=== PATIENT | male | born 1990 | race African-American/Black ===

== ENCOUNTER 2017-07-05 23:23 | Inpatient (IN) | payer MEDICAID, OTHER ==
[~2017-07-05] VITALS: Ht 162.6 cm; Wt 66.6 kg
[2017-07-05 23:24] VITALS: BP 177/119; PULSE 92; RESP 16; TEMP 98.5; O2SAT 98
--- NOTE | 2017-07-06 00:35 | PD ---
HPI Chief Complaint: Psychiatric Symptoms Time Seen by Provider: 00:23 Travel History International Travel<30 days: No Contact w/Intl Traveler<30days: No Traveled to known affect area: No History of Present Illness HPI 26yo M with PMH of HIV and hep C here with c/o homicidal ideations. Admits to using methamphetamine today. Pt states he was recently restarted on his HIV medications about 2-3 weeks ago and had CD4 count drawn but does not know result. Upon review of systems, has had some cough, left sided chest pain that is sharp for a few days. Denies any fever, n/v, abdominal pain, focal weakness or numbness. +Dysuria. However, on exam, he has abdominal tenderness and say he always has it. PFSH Past Medical History Autoimmune Disease: Yes (HIV) Bipolar Disorder: Yes Depression: Yes Hepatitis: Yes (HEP C) Psychiatric: Yes (SCHIZOAFFECTIVE DISORDER) Past Surgical History Surgical History: No Previous Surgery Social History Alcohol Use: No Tobacco Use: No Substance Use: Yes (METH) Allergies-Medications (Allergen,Severity, Reaction): Coded Allergies: sulfamethoxazole (Verified Adverse Reaction, Severe, Hives, 07/06/17) trimethoprim (Verified Adverse Reaction, Severe, Hives, 07/06/17) Reported Meds & Prescriptions Reported Meds & Active Scripts Active Reported Fluconazole 200 Mg Tab 200 Mg PO DAILY Benztropine (Benztropine Mesylate) 0.5 Mg Tab 0.5 Mg PO BID Haloperidol 5 Mg Tab 5 Mg PO HS Seroquel (Quetiapine Fumarate) 25 Mg Tab 25 Mg PO HS [place] Carbonate 300 Mg Cap 600 Mg PO HS Abilify (Aripiprazole) 20 Mg Tab 20 Mg PO DAILY Triumeq (Ulaohupx-Pfyosxaocjqe-Kkcxwtsbrf) 600-50-300 Mg Tab 1 Tab PO DAILY Hazardous agent; use appropriate precautions for handling & disposal. Review of Systems Except as stated in HPI: all other systems reviewed are Neg Physical Exam Narrative GENERAL: 26yo M not in distress. SKIN: Focused skin assessment warm/dry. HEAD: Atraumatic. Normocephalic. EYES: Pupils equal and round. No scleral icterus. No injection or drainage. ENT: No nasal bleeding or discharge. Mucous membranes pink and moist. NECK: Trachea midline. No JVD. CARDIOVASCULAR: Regular rate and rhythm. No murmur appreciated. RESPIRATORY: No accessory muscle use. Clear to auscultation. Breath sounds equal bilaterally. GASTROINTESTINAL: Abdomen soft, non-tender, +TTP LLQ. No rebound tenderness or guarding. MUSCULOSKELETAL: No obvious deformities. No clubbing. No cyanosis. No edema. NEUROLOGICAL: Awake and alert. No obvious cranial nerve deficits. Motor grossly within normal limits. Normal speech. Data Data Last Documented VS Vital Signs Date Time Temp Pulse Resp B/P (MAP) Pulse Ox O2 Delivery O2 Flow Rate FiO2 07/06/17 08:59 98.7 122 17 130/73 (92) 100 07/06/17 08:02 Room Air Orders Orders Complete Blood Count With Diff (07/06/17 00:07) Basic Metabolic Panel (Bmp) (07/06/17 00:07) Drug Screen, Random Urine (07/06/17 00:07) Alcohol (Ethanol) (07/06/17 00:07) Troponin I (07/06/17 00:31) Electrocardiogram (07/06/17 ) Chest, Single Ap (07/06/17 ) Hepatic Functional Panel (07/06/17 00:31) Urinalysis - C+S If Indicated (07/06/17 00:31) Ct Abd/Pel W Iv Contrast(Rout) (07/06/17 ) Lipase (07/06/17 00:35) Iohexol 350 Inj (Omnipaque 350 Inj) (07/06/17 02:35) Psych Screen (07/06/17 06:19) Diet Regular Basic (07/06/17 Breakfast) Admit Order (Ed Use Only) (07/06/17 12:29) Labs Laboratory Tests Test 07/06/17 00:44 07/06/17 00:50 White Blood Count 6.9 TH/MM3 Red Blood Count 5.47 MIL/MM3 Hemoglobin 14.4 GM/DL Hematocrit 43.0 % Mean Corpuscular Volume 78.5 FL Mean Corpuscular Hemoglobin 26.3 PG Mean Corpuscular Hemoglobin Concent 33.5 % Red Cell Distribution Width 15.6 % Platelet Count 342 TH/MM3 Mean Platelet Volume 6.7 FL Neutrophils (%) (Auto) 58.6 % Lymphocytes (%) (Auto) 27.0 % Monocytes (%) (Auto) 10.8 % Eosinophils (%) (Auto) 3.2 % Basophils (%) (Auto) 0.4 % Neutrophils # (Auto) 4.1 TH/MM3 Lymphocytes # (Auto) 1.9 TH/MM3 Monocytes # (Auto) 0.8 TH/MM3 Eosinophils # (Auto) 0.2 TH/MM3 Basophils # (Auto) 0.0 TH/MM3 CBC Comment DIFF FINAL Differential Comment Blood Urea Nitrogen 15 MG/DL Creatinine 1.22 MG/DL Random Glucose 95 MG/DL Calcium Level 9.4 MG/DL Sodium Level 138 MEQ/L Potassium Level 3.9 MEQ/L Chloride Level 103 MEQ/L Carbon Dioxide Level 27.5 MEQ/L Anion Gap 8 MEQ/L Estimat Glomerular Filtration Rate 88 ML/MIN Total Bilirubin 0.4 MG/DL Direct Bilirubin 0.1 MG/DL Indirect Bilirubin 0.3 MG/DL Aspartate Amino Transf (AST/SGOT) 25 U/L Alanine Aminotransferase (ALT/SGPT) 42 U/L Alkaline Phosphatase 96 U/L Troponin I LESS THAN 0.02 NG/ML Total Protein 9.1 GM/DL Albumin 4.0 GM/DL Lipase 144 U/L Ethyl Alcohol Level LESS THAN 3 MG/DL Urine Opiates Screen NEG Urine Barbiturates Screen NEG Urine Amphetamines Screen POS Urine Benzodiazepines Screen NEG Urine Cocaine Screen NEG Urine Cannabinoids Screen NEG MDM Medical Decision Making Medical Screen Exam Complete: Yes Emergency Medical Condition: Yes Differential Diagnosis Pneumonia vs. pancreatitis vs. IBS vs. UTI vs. depression vs. suicidal ideation Narrative Course 26yo M with HIV and unknown CD4 count here with homicidal ideation. Pt wants to see a psychiatrist. Also has multiple other complaints. EKG, Labs, CXR, CT a/p ordered and will sign out to PA to follow up. If everything is normal, then can medically clear for psych. Diagnosis Primary Impression: Medical clearance for psychiatric admission Anika Rondon DO Jul 06, 2017 00:35
[2017-07-06] MEDS ORDERED: LITH300C2 PO (00:36)
[2017-07-06] MEDS ORDERED: ABAC1TAB3 PO (00:36)
[2017-07-06] MEDS ORDERED: ABIL20TA5 PO (00:36)
--- NOTE | 2017-07-06 01:08 | RADRPT ---
EXAM DATE/TIME: 07/06/2017 00:39 [facility] COMPARISON: No previous studies available for comparison. INDICATIONS : Chest pain MEDICAL HISTORY : None. SURGICAL HISTORY : None. ENCOUNTER: Initial ACUITY: 1 day PAIN SCORE: 6/10 LOCATION: Bilateral chest FINDINGS: A single view of the chest demonstrates the lungs to be symmetrically aerated without evidence of mas s, infiltrate or effusion. The cardiomediastinal contours are unremarkable. Osseous structures are intact. CONCLUSION: 1. No acute cardiopulmonary disease. Oziel Lambert MD on July 06, 2017 at 1:07 Board Certified Radiologist. This report was verified electronically.
[2017-07-06 01:13] LABS: AUTOMATED NEUTROPHIL # 4.1 TH/MM3 (1.8-7.7); BASOPHIL % 0.4 % (0.0-2.0); EOSINOPHIL # 0.2 TH/MM3 (0-0.4); EOSINOPHIL % 3.2 % (0.0-4.0); HEMO FLAGS DIFF FINAL; LYMPHOCYTE # 1.9 TH/MM3 (1.0-4.8); MEAN CELL VOLUME 78.5 FL (80.0-100.0); MEAN CORPUSCULAR HEMOGLOBIN 26.3 PG (27.0-34.0); MEAN CORPUSCULAR HGB CONC 33.5 % (32.0-36.0); MONO % 10.8 % (0.0-8.0); NEUT % 58.6 % (16.0-70.0); PLATELET COUNT 342 TH/MM3 (150-450); RED BLOOD COUNT 5.47 MIL/MM3 (4.50-5.90); RED CELL DISTRIBUTION WIDTH 15.6 % (11.6-17.2); WHITE BLOOD COUNT 6.9 TH/MM3 (4.0-11.0)
[2017-07-06 01:46] LABS: ANION GAP 8 MEQ/L (5-15); BICARBONATE 27.5 MEQ/L (21.0-32.0); BLOOD UREA NITROGEN 15 MG/DL (7-18); CHLORIDE 103 MEQ/L (98-107); GLOMERULAR FILTRATION RATE 88 ML/MIN (>89); POTASSIUM 3.9 MEQ/L (3.5-5.1); SODIUM (NA) 138 MEQ/L (136-145)
[2017-07-06 01:47] LABS: ALCOHOL LESS THAN 3 MG/DL (0-5)
[2017-07-06] MEDS ORDERED: IOHEXOL 350 MG/ML 10 ML VIAL (for RAD DIAG) IVCONTRAST ONE (02:35)
--- NOTE | 2017-07-06 02:49 | RADRPT ---
EXAM DATE/TIME: 07/06/2017 02:24 [facility] COMPARISON: No previous studies available for comparison. INDICATIONS : Left sided abdominal pain. IV CONTRAST: 70 cc Omnipaque 350 (iohexol) IV ORAL CONTRAST: No oral contrast ingested. RADIATION DOSE: 6.64 CTDIvol (mGy) MEDICAL HISTORY : HIV. Hepatitis C. SURGICAL HISTORY : None. ENCOUNTER: Initial ACUITY: 3 days PAIN SCALE: 3/10 LOCATION: Left abdomen TECHNIQUE: Volumetric scanning of the abdomen and pelvis was performed. Using automated exposure control and ad justment of the mA and/or kV according to patient size, radiation dose was kept as low as reasonably achievable to obtain optimal diagnostic quality images. DICOM format image data is available electro nically for review and comparison. FINDINGS: Examination of the lung bases demonstrates no abnormality. No pleural fluid is identified. No pulmona ry nodules are present. The liver and spleen are free of focal defects. The gallbladder and pancreas demonstrate no abnormality. The adrenal glands are normal. The kidneys demonstrate no evidence of lillian id renal mass or hydronephrosis. No free fluid or abdominal masses are identified. No para-aortic quyen nopathy is seen. There are mildly dilated loops of small bowel the left side of the abdomen which may reflect ileus. Examination of the pelvis demonstrates no evidence of free fluid or pelvic mass. No abnormally enlarg ed inguinal or retroperitoneal lymph nodes are present. The bladder is unremarkable. CONCLUSION: 1. Findings of mild small bowel ileus in the left side of the abdomen. Oziel Lambert MD on July 06, 2017 at 2:44 Board Certified Radiologist. This report was verified electronically.
--- NOTE | 2017-07-06 03:02 | PD ---
Physical Exam Date Seen by Provider: Jul 06, 2017 Time Seen by Provider: 03:00 Data Data Last Documented VS Vital Signs Date Time Temp Pulse Resp B/P (MAP) Pulse Ox O2 Delivery O2 Flow Rate FiO2 07/05/17 23:24 98.5 92 16 177/119 (138) 98 Room Air Orders Orders Complete Blood Count With Diff (07/06/17 00:07) Basic Metabolic Panel (Bmp) (07/06/17 00:07) Drug Screen, Random Urine (07/06/17 00:07) Alcohol (Ethanol) (07/06/17 00:07) Troponin I (07/06/17 00:31) Electrocardiogram (07/06/17 ) Chest, Single Ap (07/06/17 ) Hepatic Functional Panel (07/06/17 00:31) Urinalysis - C+S If Indicated (07/06/17 00:31) Ct Abd/Pel W Iv Contrast(Rout) (07/06/17 ) Lipase (07/06/17 00:35) Iohexol 350 Inj (Omnipaque 350 Inj) (07/06/17 02:35) Labs Laboratory Tests Test 07/06/17 00:44 07/06/17 00:50 White Blood Count 6.9 TH/MM3 Red Blood Count 5.47 MIL/MM3 Hemoglobin 14.4 GM/DL Hematocrit 43.0 % Mean Corpuscular Volume 78.5 FL Mean Corpuscular Hemoglobin 26.3 PG Mean Corpuscular Hemoglobin Concent 33.5 % Red Cell Distribution Width 15.6 % Platelet Count 342 TH/MM3 Mean Platelet Volume 6.7 FL Neutrophils (%) (Auto) 58.6 % Lymphocytes (%) (Auto) 27.0 % Monocytes (%) (Auto) 10.8 % Eosinophils (%) (Auto) 3.2 % Basophils (%) (Auto) 0.4 % Neutrophils # (Auto) 4.1 TH/MM3 Lymphocytes # (Auto) 1.9 TH/MM3 Monocytes # (Auto) 0.8 TH/MM3 Eosinophils # (Auto) 0.2 TH/MM3 Basophils # (Auto) 0.0 TH/MM3 CBC Comment DIFF FINAL Differential Comment Blood Urea Nitrogen 15 MG/DL Creatinine 1.22 MG/DL Random Glucose 95 MG/DL Calcium Level 9.4 MG/DL Sodium Level 138 MEQ/L Potassium Level 3.9 MEQ/L Chloride Level 103 MEQ/L Carbon Dioxide Level 27.5 MEQ/L Anion Gap 8 MEQ/L Estimat Glomerular Filtration Rate 88 ML/MIN Ethyl Alcohol Level LESS THAN 3 MG/DL Urine Opiates Screen NEG Urine Barbiturates Screen NEG Urine Amphetamines Screen POS Urine Benzodiazepines Screen NEG Urine Cocaine Screen NEG Urine Cannabinoids Screen NEG MDM Medical Record Reviewed: Yes Supervised Visit with SEKOU: Yes Interpretation(s) CBC & BMP Diagram 07/06/17 00:44 Calcium Level 9.4 Last 24 hours Impressions Chest X-Ray 07/06/17 0000 Signed Impressions: Service Date/Time: Thursday, July 06, 2017 00:39 - CONCLUSION: 1. No acute cardiopulmonary disease. Oziel Lambert MD Abdomen/Pelvis CT 07/06/17 0000 Signed Impressions: Service Date/Time: Thursday, July 06, 2017 02:24 - CONCLUSION: 1. Findings of mild small bowel ileus in the left side of the abdomen. Oziel Lambert MD Differential Diagnosis MDM: High Differential diagnoses: Schizophrenia, schizoaffective disorder, bipolar, anxiety, depression, adjustment reaction, mood disorder NOS, ODD, depressive disorder NOS, dementia, dementia with agitation, psychosis NOS, substance induced mood disorder, DMDD, Asperger syndrome, infection,electrolyte abnormality, malingering. Narrative Course Mental health screening discussed with the patient. Psychiatric screen ordered. I reviewed the patient's laboratory tests. I've also reviewed his CT scans. CT reveals a mild ileus. In lieu of the patient's normal labs and history of intermittent chronic abdominal pain I do not believe that this is a significant finding. The patient is not vomiting. I believe the patient is considered medically cleared. This is medical clearance for psychiatric admission Diagnosis Primary Impression: Medical clearance for psychiatric admission Condition: Casey Marie Jul 06, 2017 03:02
[2017-07-06 06:48] LABS: ALKALINE PHOSPHATASE 96 U/L (45-117); TOTAL BILIRUBIN ADULT 0.4 MG/DL (0.2-1.0)
[2017-07-06 07:11] LABS: ALT (GPT) 42 U/L (12-78); AST (GOT) 25 U/L (15-37); INDIRECT BILIRUBIN 0.3 MG/DL (0.0-0.8)
[2017-07-06 08:02] VITALS: BP 141/84; PULSE 97; RESP 16; O2SAT 100
[2017-07-06 08:59] VITALS: BP 130/73; PULSE 122; RESP 17; TEMP 98.7; O2SAT 100
[2017-07-06] MEDS ORDERED: SERO25TA PO (10:08)
[2017-07-06] MEDS ORDERED: HALO5TAB PO (10:23)
[2017-07-06] MEDS ORDERED: BENZ0.5T PO (10:28)
[2017-07-06] MEDS ORDERED: FLUC200T2 PO (10:30)
[2017-07-06] MEDS ORDERED: LORazepam 2 MG/ML VIAL IM PRN (12:30)
[2017-07-06] MEDS ORDERED: MAGNESIUM HYDROXIDE SUSP 30 ML CUP PO PRN (12:30)
--- NOTE | 2017-07-06 12:41 | HHI.HP ---
Provisional Diagnosis Admission Date [place] I. Adjustment disorder with depressed mood Certification of Person's Competence To Provide Express and Informed Consent I have personally examined Charles Taylor , a person being served at [facility] on, Jul 06, 2017 12:32. Express and informed consent means consent voluntarily given in writing, by a competent person, after sufficient explanation and disclosure of the subject matter involved to enable the person to make a knowing and willful decision without any element of force, fraud, deceit, duress, or other form of constraint or coercion. This person is 18 years of age or older, is not now known to be incompetent to consent to treatment with a guardian advocate, and does not have a health care surrogate or proxy currently making medical treatment decisions. I have found this person to be one of the following: [X] Competent to provide express and informed consent, as defined above, for voluntary admission to this facility and is competent to provide express and informed consent for treatment. He/she has the consistent capacity to make well reasoned, willful, and knowing decisions concerning his or her medical or mental health treatment. The person fully and consistently understands the purpose of the admission for examination/placement and is fully capable of personally exercising all rights [place] [] Incompetent to provide express and informed consent to voluntary admission, and this is incompetent to provide express and informed consent to treatment. The person must be transferred to involuntary status and a petition for a guardian advocate filed with the Circuit Court. [] Refusing to provide express and informed consent to voluntary admission but is competent to provide express and informed consent for treatment. The person must be discharged or transferred to involuntary status. Form shall be completed within 24 hours of a person's arrival at the receiving facility and filed in the clinical record of each person: 1. Admitted on a voluntary basis 2. Permitted to provide express and informed consent to his/her own treatment 3. Allowed to transfer from involuntary to voluntary status 4. Prior to permitting a person to consent to his or her own treatment after having been previously found incompetent to consent to treatment. History of Present Illness Capacity: Has Capacity HPI 26-year-old male, HIV positive, presented to the emergency department voluntarily with thoughts of homicidal ideation and suicidal ideation. Patient has been experiencing these thoughts of self-harm and to harm others intermittently over the last several weeks. He has also been self-medicating his depressive complaints with illicit drugs. Although he has an appointment with [facility] next Sunday to undergo detox and rehabilitation. [place] was [place] Due to these stressors, the patient describes current suicidal thinking with plan. He has attempted to hang himself in the past. He reports he could overdose on his medicine or figure out other ways to harm himself or others. Furthermore, the patient describes multiple symptoms of depression including depressed mood, anhedonia, diminished energy, insomnia, low self-esteem, feelings of hopelessness and helplessness, appetite loss, anxiety and diminished concentration. His toxicology screen is positive for amphetamines but he admitted this without the need for testing. Review of Systems Psychiatric: COMPLAINS OF: Anxiety, Depression Except as stated in HPI: all other systems reviewed are Neg Past Psych History Psychological trauma history Unknown psychological trauma. Patient has been treated at [facility] in the past and was hospitalized there in March. He apparently attempted to hang himself while at [facility]. He has been treated there with Seroquel, Haldol and Abilify. Violence risk - others (6 mos) Moderate Violence risk - self (6 mos) High Substance Abuse History Drugs/Alcohol past 12 months Recently abusing amphetamines substances. Past Family Social History Coded Allergies: sulfamethoxazole (Verified Adverse Reaction, Severe, Hives, 07/06/17) trimethoprim (Verified Adverse Reaction, Severe, Hives, 07/06/17) Reported Medications Fluconazole (Fluconazole) 200 Mg Tab, 200 MG PO DAILY for Infection, TAB 0 Refills 07/06/17 Benztropine (Benztropine) 0.5 Mg Tab, 0.5 MG PO BID, #60 TAB 0 Refills 07/06/17 Haloperidol (Haloperidol) 5 Mg Tab, 5 MG PO HS, TAB 0 Refills 07/06/17 Quetiapine (Seroquel) 25 Mg Tab, 25 MG PO HS, #30 TAB 0 Refills 07/06/17 [place] Carbonate ([place] Carbonate) 300 Mg Cap, 600 MG PO HS, CAP 0 Refills 07/06/17 Aripiprazole (Abilify) 20 Mg Tab, 20 MG PO DAILY, #30 TAB 0 Refills 07/06/17 Htuhpfst-Dhmmqvipniom-Uzkfxiianj (Triumeq) 600-50-300 Mg Tab, 1 TAB PO DAILY for Mgmt Viral Infection, #30 TAB 0 Refills Hazardous agent; use appropriate precautions for handling & disposal. 07/06/17 Family Psych History Positive for mood and anxiety disorders. Social History Currently unemployed. Currently homeless. Has a biological father who [place] but is apparently unhappy with the patient's recent abuse of amphetamines. Patient does have a treatment relationship with [facility] and still wants to receive help for his drug abuse. Patient's Strengths (min. 2) Verbal and has access to healthcare Physical Exam GENERAL: SKIN: Warm and dry. HEAD: Normocephalic. EYES: No scleral icterus. No injection or drainage. NECK: Supple, trachea midline. No JVD or lymphadenopathy. CARDIOVASCULAR: Regular rate and rhythm without murmurs, gallops, or rubs. RESPIRATORY: Breath sounds equal bilaterally. No accessory muscle use. GASTROINTESTINAL: Abdomen soft, non-tender, nondistended. MUSCULOSKELETAL: No cyanosis, or edema. BACK: Nontender without obvious deformity. No CVA tenderness. Vital Signs Vital Signs Date Time Temp Pulse Resp B/P (MAP) Pulse Ox O2 Delivery O2 Flow Rate FiO2 07/06/17 08:59 98.7 122 17 130/73 (92) 100 07/06/17 08:02 Room Air Lab Results Test 07/06/17 00:44 07/06/17 00:50 White Blood Count 6.9 TH/MM3 Red Blood Count 5.47 MIL/MM3 Hemoglobin 14.4 GM/DL Hematocrit 43.0 % Mean Corpuscular Volume 78.5 FL Mean Corpuscular Hemoglobin 26.3 PG Mean Corpuscular Hemoglobin Concent 33.5 % Red Cell Distribution Width 15.6 % Platelet Count 342 TH/MM3 Mean Platelet Volume 6.7 FL Neutrophils (%) (Auto) 58.6 % Lymphocytes (%) (Auto) 27.0 % Monocytes (%) (Auto) 10.8 % Eosinophils (%) (Auto) 3.2 % Basophils (%) (Auto) 0.4 % Neutrophils # (Auto) 4.1 TH/MM3 Lymphocytes # (Auto) 1.9 TH/MM3 Monocytes # (Auto) 0.8 TH/MM3 Eosinophils # (Auto) 0.2 TH/MM3 Basophils # (Auto) 0.0 TH/MM3 CBC Comment DIFF FINAL Differential Comment Blood Urea Nitrogen 15 MG/DL Creatinine 1.22 MG/DL Random Glucose 95 MG/DL Calcium Level 9.4 MG/DL Sodium Level 138 MEQ/L Potassium Level 3.9 MEQ/L Chloride Level 103 MEQ/L Carbon Dioxide Level 27.5 MEQ/L Anion Gap 8 MEQ/L Estimat Glomerular Filtration Rate 88 ML/MIN Total Bilirubin 0.4 MG/DL Direct Bilirubin 0.1 MG/DL Indirect Bilirubin 0.3 MG/DL Aspartate Amino Transf (AST/SGOT) 25 U/L Alanine Aminotransferase (ALT/SGPT) 42 U/L Alkaline Phosphatase 96 U/L Troponin I LESS THAN 0.02 NG/ML Total Protein 9.1 GM/DL Albumin 4.0 GM/DL Lipase 144 U/L Ethyl Alcohol Level LESS THAN 3 MG/DL Urine Opiates Screen NEG Urine Barbiturates Screen NEG Urine Amphetamines Screen POS Urine Benzodiazepines Screen NEG Urine Cocaine Screen NEG Urine Cannabinoids Screen NEG Mental Status Examination Appearance: Appropriate Consciousness: Alert Orientation: x4 Motor Activity: Normal gait Speech: Unremarkable Language: Adequate Fund of Knowledge: Adequate Attention and Concentration: Adequate Memory: Unremarkable Mood: Sad Affect: Sad Thought Process & Associations: Intact Thought Content: Appropriate Hallucination Type: None Delusion Type: None Suicidal Ideation: Yes Suicidal Plan: Yes Suicidal Intention: Yes Homicidal Ideation: Yes Homicidal Plan: No Homicidal Intention: No Insight: Adequate Judgment: Adequate Assessment & Plan Problem List: (1) Adjustment disorder with depressed mood ICD Codes: F43.21 - Adjustment disorder with depressed mood Assessment & Plan Estimated LOS: days. 26-year-old male who presents voluntarily with history of depression and suicidal ideation as well as homicidal ideation. While this physician does not feel the patient is truly homicidal, the patient does have multiple symptoms of depression, including suicidal ideation with plan, chronic medical issue of HIV, and history of previous suicide attempts. He is therefore felt to be at high risk for self-harm and is being admitted voluntarily for evaluation and treatment. This physician has ordered a CBC and comprehensive metabolic panel to determine if any infectious process or metabolic process is causing or contributing to his depression. This physician has ordered a hep us consult to evaluate the patient's physical health and the status of his HIV. There is significant concern that the patient has been noncompliant with both psychotropic and nonpsychotropic medicines. This physician also ordered thyroid stimulating hormone levels, vitamin B-12 levels and vitamin D levels, to determine if deficiencies in these areas are causing or contributing to the patient's depression. This physician has also ordered an EKG to determine the patient's cardiac conduction status. This physician spoke with the patient's nurse, Donna, regarding his recent behavior in the emergency department. Patient has apparently discussed with her, and alter ego he has named "Karlos". This physician is also asking for case management to get involved for further information gathering and disposition planning. Guido Martínez MD Jul 06, 2017 12:41
[2017-07-06 14:21] VITALS: BP 137/75; PULSE 103; RESP 17; TEMP 98.7; O2SAT 98
[2017-07-06 16:45] VITALS: BP 149/95; PULSE 115; RESP 18; TEMP 98.5; O2SAT 95
[2017-07-06 17:06] VITALS: BP 119/80; PULSE 117; RESP 18; TEMP 97.8; O2SAT 100
[2017-07-06] MEDS: LORazepam 1 MG TAB PO PRN (17:55)
--- NOTE | 2017-07-06 18:07 | EKG ---
Date Performed: 07/06/2017 Time Performed: 02:16:12 PTAGE: 26 years EKG: Sinus rhythm POSSIBLE LEFT ATRIAL ENLARGEMENT BORDERLINE ECG NO PREVIOUS TRACING DOCTOR: Elva Judd Interpretating Date/Time 07/06/2017 18:05:05
--- NOTE | 2017-07-06 18:14 | PD.CONS ---
HPI Service [facility] Hospitalists Consult Requested By Guido Martínez M.D. Reason for Consult Medical management of HIV positive status. Primary Care Physician Isaias Pollock M.D. Diagnoses: (1) HIV positive (2) Methamphetamine abuse (3) Tachycardia (4) Wheezing (5) Abdominal left lower quadrant tenderness History of Present Illness Mr. Taylor is 26 yo, with history of HIV positive status, depression/bipolar/schizoaffective disorder, and hepatitis C positive. Mr. Taylor came to [facility] due to feeling of depression and suicidal ideation. He was medically cleared by the ED for psychiatric admission. Dr. Martínez consulted the hospitalist team to medically manage Mr. Taylor's HIV status. Mr. Taylor reported he was diagnosed with HIV on September 02, 2015 "and that was the worst say of my life." He said he was prescribed Triumeq which he stated he took for a period of time "but I was off of it for about a year." He stated he resumed his medication 2-3 weeks ago when "things were looking up for me." He stated his depression has worsened over the past two weeks. He noted he wanted help and "didn't want to commit suicide." He stated he has attempted suicide in the past by overdosing on methamphetamines. He reported he has been meth for "about 6 months to a year" with use reported as 4-5 days per week. he stated he will be seeking rehabilitation services upon discharge as "it's not fun any more." Mr. Taylor reported he was seen by his HIV physician 2-3 weeks ago and had blood work obtained. He said he is to see that physician July 23 for follow-up. He stated for the past "couple of weeks" having left sided chest pain "on top of my chest" without pain radiating to his back, neck, or left shoulder/arm. Mr. Taylor reported over the past month he has experienced wheezing and denied allergies, asthma, or other breathing disorder. Over the course of the past two months he reported experiencing "my heart beat has been rapid" and sweating. For the past year he reported intermittent left lower quadrant tenderness. He also reported infrequent "pain when I pee" as well as decreased bowel movements and flatulence. He noted his appetite is greatly decreased and may not "have anything coming out because I haven;t been eating all that much." He noted he did not think his appetite change was related to his depression as "I usually eat when I am depressed." Review of Systems Constitutional: COMPLAINS OF: Diaphoretic episodes, Change in appetite Endocrine: DENIES: Polydipsia, Polyphagia Ears, nose, mouth, throat: DENIES: Throat pain, Sinus Pain Respiratory: COMPLAINS OF: Cough, Wheezing Cardiovascular: DENIES: Chest pain, Palpitations, Dyspnea on Exertion Gastrointestinal: COMPLAINS OF: Abdominal pain, DENIES: Black stools, Constipation, Diarrhea, Nausea, Vomiting Musculoskeletal: COMPLAINS OF: Muscle aches (of the chest) Hematologic/lymphatic: DENIES: Lymphadenopathy Neurologic: COMPLAINS OF: Headache Psychiatric: COMPLAINS OF: Depression, Suicidal Ideation Except as stated in HPI: all other systems reviewed are Neg Past Family Social History Allergies: Coded Allergies: sulfamethoxazole (Verified Adverse Reaction, Severe, Hives, 07/06/17) trimethoprim (Verified Adverse Reaction, Severe, Hives, 07/06/17) Past Medical History HIV positive status, depression/bipolar/schizoaffective disorder hepatitis C positive. Past Surgical History Surgical history was denied. Reported Medications Reported Meds & Active Scripts Active Reported Fluconazole 200 Mg Tab 200 Mg PO DAILY Benztropine (Benztropine Mesylate) 0.5 Mg Tab 0.5 Mg PO BID Haloperidol 5 Mg Tab 5 Mg PO HS Seroquel (Quetiapine Fumarate) 25 Mg Tab 25 Mg PO HS [place] Carbonate 300 Mg Cap 600 Mg PO HS Abilify (Aripiprazole) 20 Mg Tab 20 Mg PO DAILY Triumeq (Bncgmtqk-Hhrzocbssdvk-Yixibbgzlk) 600-50-300 Mg Tab 1 Tab PO DAILY Hazardous agent; use appropriate precautions for handling & disposal. Active Ordered Medications Current Medications Medications (Trade) Dose Ordered Sig/Viviane Route Start Time Stop Time Status Last Admin (Ativan) 1 mg Q6H PRN PO 07/06/17 12:30 07/06/17 17:55 (Ativan Inj) 1 mg Q6H PRN IM 07/06/17 12:30 (Tylenol) 650 mg Q4H PRN PO 07/06/17 12:30 (Milk Of Magnesia Liq) 30 ml DAILY PRN PO 07/06/17 12:30 (Mag-Al Plus Susp Liq) 30 ml Q6H PRN PO 07/06/17 12:30 (Desyrel) 50 mg HS PRN PO 07/06/17 12:30 (Atarax) 50 mg Q6H PRN PO 07/06/17 12:30 (Pneumovax-23 Inj) 25 mcg ONCE ONCE IM 07/07/17 10:00 07/07/17 10:01 Family History Pt reported significant family history (both sides" for diabetes, hypertension, and cancer. He specifically identified the following family members and their conditions Uncle-stomach cancer Grandmother-Breast cancer Grandmother-Bone cancer Mother-COPD Father-Kidney disease, diabetes, hypertension. Social History Alcohol use-reported as "maybe one time per year." Tobacco use was denied. Illicit/recreational drug use: pt reported methamphetamine use of 6 months to a year, 4-5 days per week. Pt's drug screen was positive for amphetamines upon admission. Pt stated he last used methamphetamines "about 4 days ago". Review of ER record indicated pt told ED team he had used on 07/05/17 Physical Exam Vital Signs Vital Signs Date Time Temp Pulse Resp B/P (MAP) Pulse Ox O2 Delivery O2 Flow Rate FiO2 07/06/17 17:06 97.8 117 18 119/80 (93) 100 07/06/17 16:45 98.5 115 18 149/95 (113) 95 07/06/17 14:23 07/06/17 14:21 98.7 103 17 137/75 (95) 98 07/06/17 08:59 98.7 122 17 130/73 (92) 100 07/06/17 08:02 97 16 141/84 (103) 100 Room Air 07/05/17 23:24 98.5 92 16 177/119 (138) 98 Room Air Physical Exam GENERAL: This is a thin appearing, well-developed patient, in no apparent distress. SKIN: No rashes, ecchymoses or lesions. Cool and dry. HEAD: Atraumatic. Normocephalic. No temporal or scalp tenderness. EYES: Pupils equal round and reactive. Extraocular motions intact. No scleral icterus. No injection or drainage. ENT: Nose without bleeding or purulent drainage. Airway patent. NECK: Trachea midline. No lymphadenopathy. Supple and nontender. CARDIOVASCULAR: Tachycardic rate (120) and regular rhythm without murmurs, gallops, or rubs. RESPIRATORY: Clear to auscultation. Breath sounds equally diminished, bilaterally. No wheezes, rales, or rhonchi. GASTROINTESTINAL: Abdomen soft, tender left lower quadrant, nondistended. No hepato-splenomegaly, or palpable masses. No guarding. MUSCULOSKELETAL: Extremities without clubbing, cyanosis, or edema. NEUROLOGICAL: Awake and alert. Cranial nerves II through XII intact. Motor and sensory grossly within normal limits. Five out of 5 muscle strength in all muscle groups. Speech was clear and fluent. Laboratory Laboratory Tests Test 07/06/17 00:44 07/06/17 00:50 White Blood Count 6.9 Red Blood Count 5.47 Hemoglobin 14.4 Hematocrit 43.0 Mean Corpuscular Volume 78.5 Mean Corpuscular Hemoglobin 26.3 Mean Corpuscular Hemoglobin Concent 33.5 Red Cell Distribution Width 15.6 Platelet Count 342 Mean Platelet Volume 6.7 Neutrophils (%) (Auto) 58.6 Lymphocytes (%) (Auto) 27.0 Monocytes (%) (Auto) 10.8 Eosinophils (%) (Auto) 3.2 Basophils (%) (Auto) 0.4 Neutrophils # (Auto) 4.1 Lymphocytes # (Auto) 1.9 Monocytes # (Auto) 0.8 Eosinophils # (Auto) 0.2 Basophils # (Auto) 0.0 CBC Comment DIFF FINAL Differential Comment Blood Urea Nitrogen 15 Creatinine 1.22 Random Glucose 95 Calcium Level 9.4 Sodium Level 138 Potassium Level 3.9 Chloride Level 103 Carbon Dioxide Level 27.5 Anion Gap 8 Estimat Glomerular Filtration Rate 88 Total Bilirubin 0.4 Direct Bilirubin 0.1 Indirect Bilirubin 0.3 Aspartate Amino Transf (AST/SGOT) 25 Alanine Aminotransferase (ALT/SGPT) 42 Alkaline Phosphatase 96 Troponin I LESS THAN 0.02 Total Protein 9.1 Albumin 4.0 Lipase 144 Ethyl Alcohol Level LESS THAN 3 Urine Opiates Screen NEG Urine Barbiturates Screen NEG Urine Amphetamines Screen POS Urine Benzodiazepines Screen NEG Urine Cocaine Screen NEG Urine Cannabinoids Screen NEG Result Diagram: 07/06/17 0044 07/06/17 0044 Assessment and Plan Assessment and Plan Mr. Taylor is 26 yo, with history of HIV positive status, depression/bipolar/schizoaffective disorder, and hepatitis C positive. Mr. Taylor came to [facility] due to feeling of depression and suicidal ideation. He was medically cleared by the ED for psychiatric admission. Dr. Martínez consulted the hospitalist team to medically manage Mr. Taylor's HIV status. HIV positive -Convert home regimen of Triumeq to individual equivalent medications given at same time. -Abacavir 600 mg po daily, Dolutegravir 50 mg po daily, Lamivudine 300 mg po daily Tachycardia chest pain -Drug test positive for amphetamines. -EKG from ED indicated normal rate with possible left atrial enlargement. -Monitor -Check Thyroid panel -Labs do not indicate dehydration Dyspnea -Albuterol inhaler Lower left quadrant abdominal pain, chronic -Ileus ruled out by ED team -Consider GI consult Adjustment disorder with depressed mood -Treatment per psychiatry. Discussed Condition With Pt and RN Problem Qualifiers (1) Abdominal left lower quadrant tenderness: Qualified Codes: R10.824 - Left lower quadrant rebound abdominal tenderness Froy Mae Jr. Jul 06, 2017 18:14
[2017-07-06 18:20] VITALS: BP 155/88; PULSE 84; RESP 16; TEMP 98.7; O2SAT 98
[2017-07-06] MEDS ORDERED: ALBUTEROL SULFATE 90 MCG/ACT HFA 8 GM INHALER INH PRN (19:00)
[2017-07-06] MEDS: traZODone HCL 50 MG TAB PO PRN (21:09)
[2017-07-06] MEDS: hydrOXYzine HCL 50 MG TAB PO PRN (21:09)
[2017-07-07 06:29] VITALS: BP 117/63; PULSE 110; RESP 17; TEMP 97.7; O2SAT 100
[2017-07-07 07:09] LABS: BLOOD, URINE NEG (NEG); COMMENT (UR) CULT NOT INDICATED; CULTURE IF INDICATED CULT NOT INDICATED; GLUCOSE,URINE NEG (NEG); KETONE, URINE NEG (NEG); NITRITE,URINE NEG (NEG); URINE COLOR YELLOW (YELLW/STRAW)
[2017-07-07 07:32] LABS: AUTOMATED NEUTROPHIL # 1.4 TH/MM3 (1.8-7.7); BASOPHIL % 0.6 % (0.0-2.0); EOSINOPHIL # 0.3 TH/MM3 (0-0.4); EOSINOPHIL % 8.1 % (0.0-4.0); HEMATOCRIT 41.7 % (39.0-51.0); HEMO FLAGS DIFF FINAL; LYMPH % 39.5 % (9.0-44.0); LYMPHOCYTE # 1.4 TH/MM3 (1.0-4.8); MEAN CELL VOLUME 78.4 FL (80.0-100.0); MEAN CORPUSCULAR HEMOGLOBIN 26.2 PG (27.0-34.0); MEAN CORPUSCULAR HGB CONC 33.4 % (32.0-36.0); MONO % 12.9 % (0.0-8.0); NEUT % 38.9 % (16.0-70.0); PLATELET COUNT 304 TH/MM3 (150-450); RED BLOOD COUNT 5.32 MIL/MM3 (4.50-5.90); WHITE BLOOD COUNT 3.6 TH/MM3 (4.0-11.0)
[2017-07-07 07:57] LABS: ANION GAP 8 MEQ/L (5-15); AST (GOT) 24 U/L (15-37); BICARBONATE 29.2 MEQ/L (21.0-32.0); BLOOD UREA NITROGEN 17 MG/DL (7-18); CHLORIDE 100 MEQ/L (98-107); GLOMERULAR FILTRATION RATE 89 ML/MIN (>89); POTASSIUM 4.2 MEQ/L (3.5-5.1); SODIUM (NA) 137 MEQ/L (136-145)
[2017-07-07 07:58] LABS: ALT (GPT) 38 U/L (12-78)
[2017-07-07] MEDS: DOLUTEGRAVIR SODIUM 50 MG TAB PO SCH (08:20)
[2017-07-07] MEDS: ABACAVIR SULFATE 300 MG TAB PO SCH (08:20)
[2017-07-07 08:24] LABS: ALKALINE PHOSPHATASE 92 U/L (45-117); HDL CHOLESTEROL 62.2 MG/DL (40.0-60.0); LDL CHOLESTEROL 79 MG/DL (0-99); TOTAL BILIRUBIN ADULT 0.4 MG/DL (0.2-1.0)
[2017-07-07] MEDS: LORazepam 1 MG TAB PO PRN (08:35)
[2017-07-07] MEDS: ACETAMINOPHEN 325 MG TAB PO PRN (09:16)
[2017-07-07] MEDS ORDERED: PNEUMOCOCCAL POLYVALENT INJ 25 MCG/0.5 ML SYR IM ONE (10:00)
[2017-07-07] MEDS ORDERED: DOCUSATE SODIUM 50 MG/SENNA 8.6 MG TAB PO ONE (11:30)
--- NOTE | 2017-07-07 11:36 | HHI.PR ---
Subjective Remarks Patient seen in room in follow up for abd discomfort Last BM unclear, reports intermittent constipation appears dehydrated Objective Vitals Vital Signs Date Time Temp Pulse Resp B/P (MAP) Pulse Ox O2 Delivery O2 Flow Rate FiO2 07/07/17 06:29 97.7 110 17 117/63 (81) 100 07/06/17 18:20 98.7 84 16 155/88 (110) 98 07/06/17 17:06 97.8 117 18 119/80 (93) 100 07/06/17 16:45 98.5 115 18 149/95 (113) 95 07/06/17 14:23 07/06/17 14:21 98.7 103 17 137/75 (95) 98 Result Diagram: 07/07/17 0705 07/07/17 0705 Imaging Last Impressions Chest X-Ray 07/06/17 0000 Signed Impressions: Service Date/Time: Thursday, July 06, 2017 00:39 - CONCLUSION: 1. No acute cardiopulmonary disease. Oziel Lambert MD Abdomen/Pelvis CT 07/06/17 0000 Signed Impressions: Service Date/Time: Thursday, July 06, 2017 02:24 - CONCLUSION: 1. Findings of mild small bowel ileus in the left side of the abdomen. Oziel Lambert MD Objective Remarks GENERAL: This is a well-nourished, well-developed patient, in no apparent distress. dry skin, hyperpigmented nails CARDIOVASCULAR: Regular rate and rhythm without murmurs, gallops, or rubs. RESPIRATORY: Clear to auscultation. Breath sounds equal bilaterally. No wheezes , rales, or rhonchi. GASTROINTESTINAL: Abdomen soft, non-tender, nondistended. hypo-active bowel sounds MUSCULOSKELETAL: Extremities without clubbing, cyanosis, or edema. NEURO: Alert & Oriented x4 to person, place, time, situation. Moves all ext x4 A/P Problem List: (1) HIV positive ICD Code: Z21 - Asymptomatic human immunodeficiency virus [HIV] infection status Plan: care plan discussed with ID team, follow up blood work, obtain old records continue HIV rx, follow up with outpatient MD (2) Tachycardia ICD Code: R00.0 - Tachycardia, unspecified Plan: asymptomatic, may be volume depleted PO hydration encouraged (3) Abdominal left lower quadrant tenderness ICD Code: R10.814 - Left lower quadrant abdominal tenderness Plan: bowel reg, PO fluids if able, if not IV lfts nl no hsm on exam a lot of fecal matter on my review of CT, mild ileus on rdiology read AM Flat/upright (4) Vitamin D deficiency ICD Code: E55.9 - Vitamin D deficiency, unspecified Plan: likely due to poor diet and inadequate sun exposure add vit d Problem Qualifiers (1) Abdominal left lower quadrant tenderness: Qualified Codes: R10.824 - Left lower quadrant rebound abdominal tenderness Carolyn Bentley MD Jul 07, 2017 11:36
[2017-07-07] MEDS: CHOLECALCIFEROL (VIT D3) 1000 UNIT TAB PO SCH (12:06)
--- NOTE | 2017-07-07 12:25 | EKG ---
Date Performed: 07/07/2017 Time Performed: 09:06:27 PTAGE: 26 years EKG: SINUS TACHYCARDIA Slight ST change anterolaterally of early repolarization Probably within normal limits for age ABNORMAL RHYTHM ECG PREVIOUS TRACING : 07/06/2017 02.16 Since previous tracing, heart rate is faster; otherwise, no significant change. DOCTOR: Guido Silver Interpretating Date/Time 07/07/2017 12:24:51
--- NOTE | 2017-07-07 13:51 | PD.ID.CON ---
History of Present Illness Service ID Consult Requested By Reason for Consult Evaluation and Mment of Possible TB in pt with HIV. Primary Care Physician Isaias Pollock M.D. Diagnoses: History of Present Illness Mr. Taylor is 26 yo, with history of HIV positive status, depression/bipolar/schizoaffective disorder, and hepatitis C positive. He came to [facility] [place] [facility] due to feeling of depression and suicidal ideation. He was medically cleared by the ED for psychiatric admission. Dr. Martínez consulted the hospitalist team to medically manage Mr. Taylor's HIV status. Mr. Taylor reported he was diagnosed with HIV on September 02, 2015 "and that was the worst say of my life." He said he was prescribed Triumeq which he stated he took for a period of time "but I was off of it for about a year." He stated he resumed his medication 2-3 weeks ago when "things were looking up for me." He stated his depression has worsened over the past two weeks. He noted he wanted help and "didn't want to commit suicide." He stated he has attempted suicide in the past by overdosing on methamphetamines. He reported he has been meth for "about 6 months to a year" with use reported as 4-5 days per week. he stated he will be seeking rehabilitation services upon discharge as "it's not fun any more." Mr. Taylor reported he was seen by his HIV physician 2-3 weeks ago and had blood work obtained. He said he is to see that physician July 23 for follow-up. He stated for the past "couple of weeks" having left sided chest pain "on top of my chest" without pain radiating to his back, neck, or left shoulder/arm. Mr. Taylor reported over the past month he has experienced wheezing and denied allergies, asthma, or other breathing disorder. Over the course of the past two months he reported experiencing "my heart beat has been rapid" and sweating. For the past year he reported intermittent left lower quadrant tenderness. He also reported infrequent "pain when I pee" as well as decreased bowel movements and flatulence. He noted his appetite is greatly decreased and may not "have anything coming out because I haven;t been eating all that much." He noted he did not think his appetite change was related to his depression as "I usually eat when I am depressed." Upon questioning he reports he last saw few weeks back and was started on HIV meds. He reports being non compliant with meds as he had no desire to live. He reports having headaches but mostly occipital off and on. He does not know if he has syphylis but reports he was tested for meningitis. Above is his psych reasons for admission. Patient was transferred to medical floor due to concerns for TB due to persistent cough and headaches. H/o meningitis. Review of Systems ROS Limitations: Poor Historian Past Family Social History Allergies: Coded Allergies: sulfamethoxazole (Verified Adverse Reaction, Severe, Hives, 07/06/17) trimethoprim (Verified Adverse Reaction, Severe, Hives, 07/06/17) Past Medical History HIV positive status, depression/bipolar/schizoaffective disorder hepatitis C positive. ? Meningitis was admitted underwent brain imaging and LP ? viral. VDRL in CSF not known. Past Surgical History None Reported Medications Reported Meds & Active Scripts Active Reported Fluconazole 200 Mg Tab 200 Mg PO DAILY Benztropine (Benztropine Mesylate) 0.5 Mg Tab 0.5 Mg PO BID Haloperidol 5 Mg Tab 5 Mg PO HS Seroquel (Quetiapine Fumarate) 25 Mg Tab 25 Mg PO HS [place] Carbonate 300 Mg Cap 600 Mg PO HS Abilify (Aripiprazole) 20 Mg Tab 20 Mg PO DAILY Triumeq (Kkzcxado-Lfplvrgzudjx-Naeeneugyh) 600-50-300 Mg Tab 1 Tab PO DAILY Hazardous agent; use appropriate precautions for handling & disposal. Active Ordered Medications Current Medications Medications (Trade) Dose Ordered Sig/Viviane Route Start Time Stop Time Status Last Admin (Ativan) 1 mg Q6H PRN PO 07/06/17 12:30 07/07/17 08:35 (Ativan Inj) 1 mg Q6H PRN IM 07/06/17 12:30 (Tylenol) 650 mg Q4H PRN PO 07/06/17 12:30 07/07/17 09:16 (Milk Of Magnesia Liq) 30 ml DAILY PRN PO 07/06/17 12:30 (Mag-Al Plus Susp Liq) 30 ml Q6H PRN PO 07/06/17 12:30 (Desyrel) 50 mg HS PRN PO 07/06/17 12:30 07/06/17 21:09 (Atarax) 50 mg Q6H PRN PO 07/06/17 12:30 07/06/17 21:09 (Ziagen) 600 mg DAILY PO 07/07/17 09:00 07/07/17 08:20 (Epivir) 300 mg DAILY PO 07/07/17 09:00 07/07/17 08:20 (Proair Hfa Inh) 2 puff Q4H PRN INH 07/06/17 19:00 (Vitamin D3) 1,000 units DAILY PO 07/07/17 11:45 07/07/17 12:06 Family History Pt reported significant family history (both sides" for diabetes, hypertension, and cancer. He specifically identified the following family members and their conditions Uncle-stomach cancer Grandmother-Breast cancer Grandmother-Bone cancer Mother-COPD Father-Kidney disease, diabetes, hypertension. Social History Alcohol use-reported as "maybe one time per year." Tobacco use was denied. Illicit/recreational drug use: pt reported methamphetamine use of 6 months to a year, 4-5 days per week. Pt's drug screen was positive for amphetamines upon admission. Pt stated he last used methamphetamines "about 4 days ago". Review of ER record indicated pt told ED team he had used on 07/05/17 Physical Exam Vital Signs Vital Signs Date Time Temp Pulse Resp B/P (MAP) Pulse Ox O2 Delivery O2 Flow Rate FiO2 07/07/17 06:29 97.7 110 17 117/63 (81) 100 07/06/17 18:20 98.7 84 16 155/88 (110) 98 07/06/17 17:06 97.8 117 18 119/80 (93) 100 07/06/17 16:45 98.5 115 18 149/95 (113) 95 07/06/17 14:23 07/06/17 14:21 98.7 103 17 137/75 (95) 98 Physical Exam GENERAL: This is a well-nourished, well-developed patient, in no apparent distress. SKIN: No rashes, ecchymoses or lesions. Cool and dry. HEAD: Atraumatic. Normocephalic. No temporal or scalp tenderness. EYES: Pupils equal round and reactive. Extraocular motions intact. No scleral icterus. No injection or drainage. ENT: Nose without bleeding, purulent drainage or septal hematoma. Throat without erythema, tonsillar hypertrophy or exudate. Uvula midline. Airway patent. NECK: Trachea midline. No JVD or lymphadenopathy. Supple, nontender, no meningeal signs. CARDIOVASCULAR: Regular rate and rhythm without murmurs, gallops, or rubs. RESPIRATORY: Clear to auscultation. Breath sounds equal bilaterally. No wheezes , rales, or rhonchi. GASTROINTESTINAL: Abdomen soft, non-tender, nondistended. No hepato-splenomegaly , or palpable masses. No guarding. MUSCULOSKELETAL: Extremities without clubbing, cyanosis, or edema. No joint tenderness, effusion, or edema noted. No calf tenderness. Negative Homans sign bilaterally. NEUROLOGICAL: Awake and alert. Cranial nerves II through XII intact. Motor and sensory grossly within normal limits. Five out of 5 muscle strength in all muscle groups. Normal speech. Psych cooperative, flat affect Laboratory Laboratory Tests Test 07/07/17 06:35 07/07/17 07:05 Urine Color YELLOW Urine Turbidity CLEAR Urine pH 6.0 Urine Specific [place] 1.025 Urine Protein NEG Urine Glucose (UA) NEG Urine Ketones NEG Urine Occult Blood NEG Urine Nitrite NEG Urine Bilirubin NEG Urine Urobilinogen 2.0 Urine Leukocyte Esterase NEG Urine RBC LESS THAN 1 Urine WBC LESS THAN 1 Microscopic Urinalysis Comment CULT NOT INDICATED White Blood Count 3.6 Red Blood Count 5.32 Hemoglobin 13.9 Hematocrit 41.7 Mean Corpuscular Volume 78.4 Mean Corpuscular Hemoglobin 26.2 Mean Corpuscular Hemoglobin Concent 33.4 Red Cell Distribution Width 15.0 Platelet Count 304 Mean Platelet Volume 6.7 Neutrophils (%) (Auto) 38.9 Lymphocytes (%) (Auto) 39.5 Monocytes (%) (Auto) 12.9 Eosinophils (%) (Auto) 8.1 Basophils (%) (Auto) 0.6 Neutrophils # (Auto) 1.4 Lymphocytes # (Auto) 1.4 Monocytes # (Auto) 0.5 Eosinophils # (Auto) 0.3 Basophils # (Auto) 0.0 CBC Comment DIFF FINAL Differential Comment Blood Urea Nitrogen 17 Creatinine 1.21 Random Glucose 81 Total Protein 8.1 Albumin 3.5 Calcium Level 9.1 Alkaline Phosphatase 92 Aspartate Amino Transf (AST/SGOT) 24 Alanine Aminotransferase (ALT/SGPT) 38 Total Bilirubin 0.4 Sodium Level 137 Potassium Level 4.2 Chloride Level 100 Carbon Dioxide Level 29.2 Anion Gap 8 Estimat Glomerular Filtration Rate 89 Triglycerides Level 90 Cholesterol Level 159 LDL Cholesterol 79 HDL Cholesterol 62.2 Cholesterol/HDL Ratio 2.55 Vitamin B12 Level 473 25-Hydroxy Vitamin D Total 13.1 Thyroid Stimulating Hormone 3rd Gen 1.060 Result Diagram: 07/07/1705 07/07/17 0705 Imaging Last Impressions Chest X-Ray 07/06/17 0000 Signed Impressions: Service Date/Time: Thursday, July 06, 2017 00:39 - CONCLUSION: 1. No acute cardiopulmonary disease. Oziel Lambert MD Abdomen/Pelvis CT 07/06/17 0000 Signed Impressions: Service Date/Time: Thursday, July 06, 2017 02:24 - CONCLUSION: 1. Findings of mild small bowel ileus in the left side of the abdomen. Oziel Lambert MD Assessment and Plan Assessment and Plan HIV positive CD4 not known. Was not on treatment in past only recently started. Hepatitis C positive by history. H/o night sweats and chronic cough likely sinus disease related. Rule out TB. Headaches History of meningitis (s/p neuroimaging and LP per patient history) Recs: Check CD4, VL Follow RPR Negative GC and Chlamydia Night sweats could be from untreated HIV. Cough could be sinus disease related and are not persistent at this point. Boston Richardson on Sunday. Paris Brannon MD Jul 07, 2017 13:51
--- NOTE | 2017-07-07 15:28 | HHI.PYPN ---
Subjective Remarks Patient was seen and case discussed with nursing. Pt continues to voice fleeting suicidal ideation with no intent or plan. He continues to voice homicidal ideation towards "friends" where "I want to torture them but not kill them for what they did to me." Pt says they "left him stranded." Pt is guarded with an irritable mood. Mental Status Examination Appearance: Appropriate Consciousness: Alert Orientation: x4 Motor Activity: Normal gait Speech: Unremarkable Language: Adequate Fund of Knowledge: Adequate Attention and Concentration: Adequate Memory: Unremarkable Mood: Oppositional, Irritable Affect: Blunt Thought Process & Associations: Intact Thought Content: Appropriate Hallucination Type: None Delusion Type: None Suicidal Ideation: Yes Suicidal Plan: No Suicidal Intention: No Homicidal Ideation: Yes Homicidal Plan: No Homicidal Intention: No Insight: Adequate Judgment: Adequate Results Labs Test 07/07/17 06:35 07/07/17 07:05 Urine Color YELLOW Urine Turbidity CLEAR Urine pH 6.0 Urine Specific [place] 1.025 Urine Protein NEG mg/dL Urine Glucose (UA) NEG mg/dL Urine Ketones NEG mg/dL Urine Occult Blood NEG Urine Nitrite NEG Urine Bilirubin NEG Urine Urobilinogen 2.0 MG/DL Urine Leukocyte Esterase NEG Urine RBC LESS THAN 1 /hpf Urine WBC LESS THAN 1 /hpf Microscopic Urinalysis Comment CULT NOT INDICATED White Blood Count 3.6 TH/MM3 Red Blood Count 5.32 MIL/MM3 Hemoglobin 13.9 GM/DL Hematocrit 41.7 % Mean Corpuscular Volume 78.4 FL Mean Corpuscular Hemoglobin 26.2 PG Mean Corpuscular Hemoglobin Concent 33.4 % Red Cell Distribution Width 15.0 % Platelet Count 304 TH/MM3 Mean Platelet Volume 6.7 FL Neutrophils (%) (Auto) 38.9 % Lymphocytes (%) (Auto) 39.5 % Monocytes (%) (Auto) 12.9 % Eosinophils (%) (Auto) 8.1 % Basophils (%) (Auto) 0.6 % Neutrophils # (Auto) 1.4 TH/MM3 Lymphocytes # (Auto) 1.4 TH/MM3 Monocytes # (Auto) 0.5 TH/MM3 Eosinophils # (Auto) 0.3 TH/MM3 Basophils # (Auto) 0.0 TH/MM3 CBC Comment DIFF FINAL Differential Comment Blood Urea Nitrogen 17 MG/DL Creatinine 1.21 MG/DL Random Glucose 81 MG/DL Total Protein 8.1 GM/DL Albumin 3.5 GM/DL Calcium Level 9.1 MG/DL Alkaline Phosphatase 92 U/L Aspartate Amino Transf (AST/SGOT) 24 U/L Alanine Aminotransferase (ALT/SGPT) 38 U/L Total Bilirubin 0.4 MG/DL Sodium Level 137 MEQ/L Potassium Level 4.2 MEQ/L Chloride Level 100 MEQ/L Carbon Dioxide Level 29.2 MEQ/L Anion Gap 8 MEQ/L Estimat Glomerular Filtration Rate 89 ML/MIN Triglycerides Level 90 MG/DL Cholesterol Level 159 MG/DL LDL Cholesterol 79 MG/DL HDL Cholesterol 62.2 MG/DL Cholesterol/HDL Ratio 2.55 RATIO Vitamin B12 Level 473 PG/ML 25-Hydroxy Vitamin D Total 13.1 ng/ML Thyroid Stimulating Hormone 3rd Gen 1.060 uIU/ML Vitals/IOs Vital Signs Date Time Temp Pulse Resp B/P (MAP) Pulse Ox O2 Delivery O2 Flow Rate FiO2 07/07/17 06:29 97.7 110 17 117/63 (81) 100 07/06/17 08:02 Room Air Intake and Output 07/07/17 07/07/17 07/08/17 08:00 16:00 00:00 Intake Total 360 ml Balance 360 ml Assessment & Plan Problem List: (1) Adjustment disorder with depressed mood ICD Codes: F43.21 - Adjustment disorder with depressed mood Assessment & Plan We will work to reconcile his medication for tomorrow. Continue current treatment plan. Substance abuse is likely a factor. Justification for Cont. Inpt. Patient would decompensate in a less restricting setting. Henok Saleh DO Jul 07, 2017 15:28
[2017-07-07 18:00] VITALS: BP 117/59; PULSE 101; RESP 18; TEMP 98; O2SAT 100
[2017-07-08 01:11] LABS: CHLAMYDIA PCR NOT DETECTED (NOT DETECT); NEISSERIA PCR NOT DETECTED (NOT DETECT)
[2017-07-08] MEDS: traZODone HCL 50 MG TAB PO PRN ×2 (01:41→21:19)
[2017-07-08 06:16] VITALS: BP 102/56; PULSE 103; RESP 18; TEMP 97.8; O2SAT 100
--- NOTE | 2017-07-08 08:34 | HHI.PR ---
Subjective Remarks Patient seen and examined No acute event overnight, denies any chest pain or shortness of breath. Still depressed with some suicidal thoughts Vitals stable Objective Vitals Vital Signs Date Time Temp Pulse Resp B/P (MAP) Pulse Ox O2 Delivery O2 Flow Rate FiO2 07/08/17 06:16 97.8 103 18 102/56 (71) 100 07/07/17 18:00 98.0 101 18 117/59 (78) 100 I/O 07/07/17 07/07/17 07/07/17 07/08/17 07/08/17 07/08/17 07:00 15:00 23:00 07:00 15:00 23:00 Intake Total 360 ml 1680 ml 120 ml Balance 360 ml 1680 ml 120 ml Intake Oral 360 ml 1680 ml 120 ml # Voids 1 1 Result Diagram: 07/07/17 0705 07/07/17 0705 Imaging Last Impressions Chest X-Ray 07/06/17 0000 Signed Impressions: Service Date/Time: Thursday, July 06, 2017 00:39 - CONCLUSION: 1. No acute cardiopulmonary disease. Oziel Lambert MD Abdomen/Pelvis CT 07/06/17 0000 Signed Impressions: Service Date/Time: Thursday, July 06, 2017 02:24 - CONCLUSION: 1. Findings of mild small bowel ileus in the left side of the abdomen. Oziel Lambert MD Objective Remarks GENERAL: NAD SKIN: Warm and dry. HEAD: Normocephalic. EYES: No scleral icterus. No injection or drainage. NECK: Supple, trachea midline. No JVD or lymphadenopathy. CARDIOVASCULAR: Tachycardia Regular rate and rhythm without murmurs, gallops, or rubs. RESPIRATORY: Breath sounds equal bilaterally. No accessory muscle use. GASTROINTESTINAL: Abdomen soft, non-tender, nondistended. MUSCULOSKELETAL: No cyanosis, or edema. BACK: Nontender without obvious deformity. No CVA tenderness. A/P Problem List: (1) HIV positive ICD Code: Z21 - Asymptomatic human immunodeficiency virus [HIV] infection status (2) Tachycardia ICD Code: R00.0 - Tachycardia, unspecified (3) Abdominal left lower quadrant tenderness ICD Code: R10.814 - Left lower quadrant abdominal tenderness (4) Vitamin D deficiency ICD Code: E55.9 - Vitamin D deficiency, unspecified Assessment and Plan 26-year-old man with Suicidal ideation Management per psychiatry Continue Faria act HIV positive CD4 count pending QuantiFERON TB test pending Continue with HAART therapy Appreciate input from infectious disease specialist Tachycardia Monitor DVT prophylaxis: Encourage ambulation Problem Qualifiers (1) Abdominal left lower quadrant tenderness: Qualified Codes: R10.824 - Left lower quadrant rebound abdominal tenderness Dioni Last MD Jul 08, 2017 08:34
[2017-07-08] MEDS: DOLUTEGRAVIR SODIUM 50 MG TAB PO SCH (08:44)
[2017-07-08] MEDS: CHOLECALCIFEROL (VIT D3) 1000 UNIT TAB PO SCH (08:44)
[2017-07-08] MEDS: ABACAVIR SULFATE 300 MG TAB PO SCH (08:44)
[2017-07-08] MEDS: LORazepam 1 MG TAB PO PRN (09:27)
[2017-07-08 10:10] LABS: HEMOGLOBIN A1a 0.9 %; HEMOGLOBIN A1b 0.6 %; HEMOGLOBIN Ao 57.6 %; HEMOGLOBIN F 0.6 %; HEMOGLOBIN LA1C 1.2 %; HEMOGLOBIN P3 2.3 %
--- NOTE | 2017-07-08 15:02 | RADRPT ---
EXAM DATE/TIME: 07/08/2017 14:41 [facility] COMPARISON: No previous studies available for comparison. INDICATIONS : Ileus. Abdominal pain. MEDICAL HISTORY : None. SURGICAL HISTORY : None. ENCOUNTER: Subsequent ACUITY: 3 days PAIN SCORE: 6/10 LOCATION: Bilateral lower quadrant FINDINGS: Supine and upright views of the abdomen were performed. The abdominal bowel gas pattern is normal. No air fluid levels are seen. No abnormal masses, calcifications, or organomegaly is seen. The visu alized lower lungs are clear. No evidence of free intraperitoneal gas. The osseous structures are u nremarkable. CONCLUSION: Radiographically benign abdomen. Jax Mac MD on July 08, 2017 at 15:00 Board Certified Radiologist. This report was verified electronically.
--- NOTE | 2017-07-08 15:29 | HHI.PYPN ---
Subjective Remarks Patient was seen and case discussed with nursing. Today, patient says "I had a breakdown with crying." Says he had fleeting SI with no intent or plan which is now resolved. Insight is improving and no longer has HI towards his friends but is vague concerning the questioning. Continues feel hopeless/helpless. Mental Status Examination Appearance: Appropriate Consciousness: Alert Orientation: x4 Motor Activity: Normal gait Speech: Unremarkable Language: Adequate Fund of Knowledge: Adequate Attention and Concentration: Adequate Memory: Unremarkable Mood: Sad, Oppositional, Irritable Affect: Blunt Thought Process & Associations: Intact Thought Content: Appropriate Hallucination Type: None Delusion Type: None Suicidal Ideation: Yes (fleeting) Suicidal Plan: No Suicidal Intention: No Homicidal Ideation: Yes (fleeting) Homicidal Plan: No Homicidal Intention: No Insight: Adequate Judgment: Adequate Results Vitals/IOs Vital Signs Date Time Temp Pulse Resp B/P (MAP) Pulse Ox O2 Delivery O2 Flow Rate FiO2 07/08/17 06:16 97.8 103 18 102/56 (71) 100 07/06/17 08:02 Room Air Intake and Output 07/08/17 07/08/17 07/09/17 08:00 16:00 00:00 Intake Total 120 ml 240 ml Balance 120 ml 240 ml Assessment & Plan Problem List: (1) Adjustment disorder with depressed mood ICD Codes: F43.21 - Adjustment disorder with depressed mood Assessment & Plan Continue current treatment plan Justification for Cont. Inpt. Pt would decompensate in a less restrictive setting Henok Saleh DO Jul 08, 2017 15:28
[2017-07-08 18:00] VITALS: BP 106/62; PULSE 121; RESP 18; TEMP 97.7; O2SAT 98
[2017-07-09] MEDS: LORazepam 1 MG TAB PO PRN ×3 (05:01→21:05)
[2017-07-09 06:22] VITALS: BP 113/74; PULSE 86; RESP 16; TEMP 97.5; O2SAT 98
--- NOTE | 2017-07-09 08:10 | HHI.PYPN ---
Subjective Remarks Pt seen and examined with RN. Chart reviewed. Case discussed with nursing staff. On my exam, patient reports recent "breakdowns of wanting to kill myself " due to difficulties with family. When I ask him how he might hurt himself, he casts his eyes around the room, settling on his bedsheet and his window, saying he might hang himself or throw himself out a window. These threats have a dramatic and somewhat manipulative quality, but I think it is prudent to take them at face value, and I have ordered the patient transferred to the high acuity unit JACQUELINE into a camera room for close monitoring. especially as there does not seem to be an active medical issue that necessitates the med psych unit. He also reports recent HI against "a group of people I thought were my friends." He denies any urge to hurt anyone on the inpatient psychiatric unit. He admits to recent crystal meth use. He reports a previous diagnosis of bipolar disorder and has been on Abilify in the past without much benefit. He is presently on no scheduled psychotropics. No physical complaints. In particular, no complaints suggestive of bowel obstruction or ileus. Review of Systems Except as stated in HPI: all other systems reviewed are Neg Mental Status Examination Appearance: Appropriate Consciousness: Alert Orientation: x4 Motor Activity: Other (no motor abnormalities noted) Speech: Unremarkable Language: Adequate Fund of Knowledge: Adequate Attention and Concentration: Adequate Memory: Unremarkable Mood: Other (dysphoric) Affect: Blunt Thought Process & Associations: Intact Thought Content: Appropriate Hallucination Type: None Delusion Type: None Suicidal Ideation: Yes Suicidal Plan: Yes Suicidal Intention: No Homicidal Ideation: Yes Homicidal Plan: No Homicidal Intention: No Insight: Poor Judgment: Poor Results Labs Item Value Date Time White Blood Count 3.6 TH/MM3 L 07/07/17 07 Hemoglobin 13.9 GM/DL 07/07/17 07 Platelet Count 304 TH/MM3 07/07/17 07 Neutrophils # (Auto) 1.4 TH/MM3 L 07/07/17 07 Sodium Level 137 MEQ/L 07/07/17 07 Chloride Level 100 MEQ/L 07/07/17 07 Potassium Level 4.2 MEQ/L 07/07/17 07 Carbon Dioxide Level 29.2 MEQ/L 07/07/17 07 Blood Urea Nitrogen 17 MG/DL 07/07/17 07 Creatinine 1.21 MG/DL 07/07/17 07 Aspartate Amino Transf (AST/SGOT) 24 U/L 07/07/17 07 Alanine Aminotransferase (ALT/SGPT) 38 U/L 07/07/17 07 Alkaline Phosphatase 92 U/L 07/07/17 07 Random Glucose 81 MG/DL 07/07/17 07 Estimat Glomerular Filtration Rate 89 ML/MIN 07/07/17 07 Vitamin B12 Level 473 PG/ML 07/07/17 07 25-Hydroxy Vitamin D Total 13.1 ng/ML L 07/07/17 07 Thyroid Stimulating Hormone 3rd Gen 1.060 uIU/ML 07/07/17 07 Urine Amphetamines Screen POS H 07/06/17 0050 Labs reviewed. Neutropenia noted. Low vitamin D level noted. Urine toxicology results noted. EKG Sinus tach, QTc 403ms. Vitals/IOs Vital Signs Date Time Temp Pulse Resp B/P (MAP) Pulse Ox O2 Delivery O2 Flow Rate FiO2 07/09/17 06:22 97.5 86 16 113/74 (87) 98 07/06/17 08:02 Room Air Intake and Output 07/09/17 07/09/17 07/10/17 08:00 16:00 00:00 Intake Total 240 ml Balance 240 ml Assessment & Plan Problem List: (1) Adjustment disorder with depressed mood ICD Codes: F43.21 - Adjustment disorder with depressed mood Assessment & Plan: Rule-out BPAD depressed. Rule-out drug induced mood disorder. (2) Methamphetamine abuse ICD Codes: F15.10 - Other stimulant abuse, uncomplicated Assessment & Plan Given that patient already has a leukopenia/neutropenia, initiation of antipsychotic for mood stabilization may be risky. I will check a CBC to trend these values. For mood stabilization, I have discussed possible pharmacotherapeutic options with patient, and I will start lithium 300mg BID with plans to check a level after appropriate interval. Renal function and TSH within normal limits. Hospitalist and infectious disease input noted and appreciated. Transfer to high acuity unit for closer monitoring. Low threshold for 1:1 should there be any evidence of behavioral deterioration. Suicide and violent/assaultive precautions. Case d/w RN. Continue other medications and care as ordered. Justification for Cont. Inpt. Med changes. Concern for an impairment in safety. Complicating conditions. Discharge Planning Pending psychiatric stabilization. Request HC Surrog/Guard Advoc?: No Oziel Solano MD Jul 09, 2017 08:10
[2017-07-09] MEDS: ABACAVIR SULFATE 300 MG TAB PO SCH (08:32)
[2017-07-09] MEDS: DOLUTEGRAVIR SODIUM 50 MG TAB PO SCH (08:32)
[2017-07-09] MEDS: CHOLECALCIFEROL (VIT D3) 1000 UNIT TAB PO SCH (08:32)
[2017-07-09] MEDS: hydrOXYzine HCL 50 MG TAB PO PRN ×2 (08:34→17:23)
--- NOTE | 2017-07-09 09:30 | HHI.PR ---
Subjective Remarks Patient seen and examined Appears to be in better mood today Denies any suicidal ideation No chest pain or shortness of breath Objective Vitals Vital Signs Date Time Temp Pulse Resp B/P (MAP) Pulse Ox O2 Delivery O2 Flow Rate FiO2 07/09/17 06:22 97.5 86 16 113/74 (87) 98 07/08/17 18:00 97.7 121 18 106/62 (77) 98 I/O 07/08/17 07/08/17 07/08/17 07/09/17 07/09/17 07/09/17 07:00 15:00 23:00 07:00 15:00 23:00 Intake Total 120 ml 240 ml 1200 ml 240 ml Balance 120 ml 240 ml 1200 ml 240 ml Intake Oral 120 ml 240 ml 1200 ml 240 ml # Voids 1 3 1 Result Diagram: 07/07/1770407/07/17704 Objective Remarks GENERAL: NAD SKIN: Warm and dry. HEAD: Normocephalic. EYES: No scleral icterus. No injection or drainage. NECK: Supple, trachea midline. No JVD or lymphadenopathy. CARDIOVASCULAR: Tachycardia Regular rate and rhythm without murmurs, gallops, or rubs. RESPIRATORY: Breath sounds equal bilaterally. No accessory muscle use. GASTROINTESTINAL: Abdomen soft, non-tender, nondistended. MUSCULOSKELETAL: No cyanosis, or edema. BACK: Nontender without obvious deformity. No CVA tenderness. A/P Problem List: (1) HIV positive ICD Code: Z21 - Asymptomatic human immunodeficiency virus [HIV] infection status (2) Tachycardia ICD Code: R00.0 - Tachycardia, unspecified (3) Abdominal left lower quadrant tenderness ICD Code: R10.814 - Left lower quadrant abdominal tenderness (4) Vitamin D deficiency ICD Code: E55.9 - Vitamin D deficiency, unspecified Assessment and Plan 26-year-old man with Suicidal ideation Management per psychiatry Continue Faria act HIV positive CD4 count, hepatitis profile pending QuantiFERON TB test pending Continue with HAART therapy Appreciate input from infectious disease specialist Tachycardia-improving Monitor DVT prophylaxis: Encourage ambulation Problem Qualifiers (1) Abdominal left lower quadrant tenderness: Qualified Codes: R10.824 - Left lower quadrant rebound abdominal tenderness Dioni Last MD Jul 09, 2017 09:30
[2017-07-09 13:04] LABS: AUTOMATED NEUTROPHIL # 1.8 TH/MM3 (1.8-7.7); BASOPHIL % 0.5 % (0.0-2.0); EOSINOPHIL # 0.2 TH/MM3 (0-0.4); EOSINOPHIL % 4.6 % (0.0-4.0); HEMATOCRIT 42.7 % (39.0-51.0); LYMPH % 45.3 % (9.0-44.0); LYMPHOCYTE # 2.1 TH/MM3 (1.0-4.8); MEAN CELL VOLUME 79.6 FL (80.0-100.0); MEAN CORPUSCULAR HEMOGLOBIN 25.8 PG (27.0-34.0); MEAN CORPUSCULAR HGB CONC 32.5 % (32.0-36.0); MONO % 9.9 % (0.0-8.0); NEUT % 39.7 % (16.0-70.0); PLATELET COUNT 273 TH/MM3 (150-450); RED BLOOD COUNT 5.37 MIL/MM3 (4.50-5.90); RED CELL DISTRIBUTION WIDTH 15.2 % (11.6-17.2); WHITE BLOOD COUNT 4.6 TH/MM3 (4.0-11.0)
[2017-07-09 13:06] LABS: HEMO FLAGS AUTO DIFF
--- NOTE | 2017-07-09 13:49 | HHI.IDPN ---
Subjective Subjective Remarks is admitted for psych reasons. Patient was transferred to medical floor due to concerns for TB due to persistent cough and headaches. H/o meningitis. Overnight events reviewed. Reports his headaches are mostly occipital Upon questioning on multiple visits I always find him lying in bed No vision changes No N/V/Diarrhea No cough No CP or SOB Antibiotics None Lines Line sties with no e.o infection Past Medical History reviewed Allergies: Coded Allergies: sulfamethoxazole (Verified Adverse Reaction, Severe, Hives, 07/06/17) trimethoprim (Verified Adverse Reaction, Severe, Hives, 07/06/17) Objective . Vital Signs Date Time Temp Pulse Resp B/P (MAP) Pulse Ox O2 Delivery O2 Flow Rate FiO2 07/09/17 06:22 97.5 86 16 113/74 (87) 98 07/08/17 18:00 97.7 121 18 106/62 (77) 98 07/09/17 07/09/17 07/10/17 15:00 23:00 07:00 Intake Total 240 ml Balance 240 ml Intake Oral 240 ml . Laboratory Tests Test 07/09/17 12:00 White Blood Count 4.6 TH/MM3 Red Blood Count 5.37 MIL/MM3 Hemoglobin 13.9 GM/DL Hematocrit 42.7 % Mean Corpuscular Volume 79.6 FL Mean Corpuscular Hemoglobin 25.8 PG Mean Corpuscular Hemoglobin Concent 32.5 % Red Cell Distribution Width 15.2 % Platelet Count 273 TH/MM3 Mean Platelet Volume 6.8 FL Neutrophils (%) (Auto) 39.7 % Lymphocytes (%) (Auto) 45.3 % Monocytes (%) (Auto) 9.9 % Eosinophils (%) (Auto) 4.6 % Basophils (%) (Auto) 0.5 % Neutrophils # (Auto) 1.8 TH/MM3 Lymphocytes # (Auto) 2.1 TH/MM3 Monocytes # (Auto) 0.5 TH/MM3 Eosinophils # (Auto) 0.2 TH/MM3 Basophils # (Auto) 0.0 TH/MM3 CBC Comment AUTO DIFF Imaging Last Impressions Abdomen X-Ray 07/08/17 0600 Signed Impressions: Service Date/Time: Saturday, July 08, 2017 14:41 - CONCLUSION: Radiographically benign abdomen. Jax Mac MD Chest X-Ray 07/06/17 0000 Signed Impressions: Service Date/Time: Thursday, July 06, 2017 00:39 - CONCLUSION: 1. No acute cardiopulmonary disease. Oziel Lambert MD Abdomen/Pelvis CT 07/06/17 0000 Signed Impressions: Service Date/Time: Thursday, July 06, 2017 02:24 - CONCLUSION: 1. Findings of mild small bowel ileus in the left side of the abdomen. Oziel Lambert MD Assessment & Plan Remarks Headaches s/p LP workup negative. Possible sinusitis chronic. Cough resolved likely post nasal discharge related. No h/o TB. Recs Follow RPR and if positive call me back. No further workup needed at this point. I spoke to about workup so far re: TB and headaches. He reports patient has had chronic headaches and extensive workup with LP x 2. He also informs me as being non compliant until recent visit. Will sign off please call back if any change in clinical condition or questions. Paris Brannon MD Jul 09, 2017 13:49
[2017-07-09 14:03] LABS: SCAN/DIFF AUTO DIFF CONFIRMED
[2017-07-09 17:19] VITALS: BP 133/68; PULSE 103; RESP 18; TEMP 98; O2SAT 100
[2017-07-09] MEDS: LITHIUM CARBONATE 300 MG TAB PO SCH (20:31)
[2017-07-09] MEDS: traZODone HCL 50 MG TAB PO PRN (21:05)
[2017-07-10 06:10] VITALS: BP 102/55; PULSE 92; RESP 16; TEMP 97.1; O2SAT 92
[2017-07-10] MEDS: LITHIUM CARBONATE 300 MG TAB PO SCH ×2 (08:08→20:25)
[2017-07-10] MEDS: DOLUTEGRAVIR SODIUM 50 MG TAB PO SCH (08:08)
[2017-07-10] MEDS: ABACAVIR SULFATE 300 MG TAB PO SCH (08:09)
[2017-07-10] MEDS: CHOLECALCIFEROL (VIT D3) 1000 UNIT TAB PO SCH (08:09)
[2017-07-10] MEDS: LORazepam 1 MG TAB PO PRN ×2 (08:11→20:25)
--- NOTE | 2017-07-10 10:04 | HHI.PYPN ---
Subjective Remarks Patient seen and examined with nurse. Chart reviewed. Case discussed in treatment team. Per nursing staff, patient is pleasant and cooperative and there has been no evidence of any attempted self injury. Counselor reports that the patient was supposed to enter into drug rehabilitation through [facility] today, and counselor will reach out to [facility] to see if entry into the program can be postponed until discharge given patient's psychiatric condition. On my examination today, the patient describes his mood as "not bad." He now denies any suicidal or homicidal ideation. Denies any audiovisual hallucinations. Sleep remains a little bit poor, and the patient is requesting adjustment of his hypnotic. Denies side effects from medications. Extensive discussion with patient of R/B/A and cautions related to use of lithium, need for particular care to maintain adequate hydration in hot/dry weather, and need for therapeutic drug level monitoring and monitoring of renal and thyroid function periodically. No physical complaints. Review of Systems Except as stated in HPI: all other systems reviewed are Neg Mental Status Examination Appearance: Appropriate Consciousness: Alert Orientation: x4 Motor Activity: Other (no motoric abnormalities appreciated) Speech: Unremarkable Language: Adequate Fund of Knowledge: Adequate Attention and Concentration: Adequate Memory: Unremarkable Mood: Other ("not bad") Affect: Other (somewhat more reactive today) Thought Process & Associations: Intact, Logical, Linear Thought Content: Appropriate Hallucination Type: None Delusion Type: None Suicidal Ideation: No Suicidal Plan: No Suicidal Intention: No Homicidal Ideation: No Homicidal Plan: No Homicidal Intention: No Insight: Poor Judgment: Poor Results Labs Test 07/09/17 12:00 White Blood Count 4.6 TH/MM3 Red Blood Count 5.37 MIL/MM3 Hemoglobin 13.9 GM/DL Hematocrit 42.7 % Mean Corpuscular Volume 79.6 FL Mean Corpuscular Hemoglobin 25.8 PG Mean Corpuscular Hemoglobin Concent 32.5 % Red Cell Distribution Width 15.2 % Platelet Count 273 TH/MM3 Mean Platelet Volume 6.8 FL Neutrophils (%) (Auto) 39.7 % Lymphocytes (%) (Auto) 45.3 % Monocytes (%) (Auto) 9.9 % Eosinophils (%) (Auto) 4.6 % Basophils (%) (Auto) 0.5 % Neutrophils # (Auto) 1.8 TH/MM3 Lymphocytes # (Auto) 2.1 TH/MM3 Monocytes # (Auto) 0.5 TH/MM3 Eosinophils # (Auto) 0.2 TH/MM3 Basophils # (Auto) 0.0 TH/MM3 CBC Comment AUTO DIFF Differential Comment AUTO DIFF CONFIRMED Labs reviewed. Leukopenia/neutropenia appears to have resolved. Vitals/IOs Vital Signs Date Time Temp Pulse Resp B/P (MAP) Pulse Ox O2 Delivery O2 Flow Rate FiO2 07/10/17 06:10 97.1 92 16 102/55 (71) 92 07/06/17 08:02 Room Air Assessment & Plan Problem List: (1) Adjustment disorder with depressed mood ICD Codes: F43.21 - Adjustment disorder with depressed mood (2) Methamphetamine abuse ICD Codes: F15.10 - Other stimulant abuse, uncomplicated Assessment & Plan Continue lithium as ordered. Plan to check a lithium level and BMP morning. Titrate trazodone for sleep. Continue to monitor on high acuity unit , although we may consider transitioning the patient to the general psychiatric unit tomorrow if appropriate. Continue other medications and care as ordered. Justification for Cont. Inpt. Monitoring for impairments in safety. Risk for decompensation in less restrictive environment. Discharge Planning Pending psychiatric stabilization. Hopefully, the patient will be able to enter into chemical dependency rehabilitation program as planned on discharge. Counselor to look into this. Request HC Surrog/Guard Advoc?: No Oziel Solano MD Jul 10, 2017 10:03
--- NOTE | 2017-07-10 12:42 | PD.TTN ---
Patient Problems 1. Discharge planning 2. Medication compliance 3. Knowledge deficit 4. Lack of coping skills Progress Toward Goals Provider Present: Dr. Dominic Solano Provider Input: Pt medication regiment has been adjusted including addition of [place]. Nurse(s) Present: Khadar Rebolledo, RN Nurse(s) Input: Pt affect appears to be improving, he denies any suicidal thoughts, denies any hallucinations, is compliant with medication regiment and has been no behavioral issue on unit. Psychiatric Counselors Present: CAMDEN Lugo Psych Therapist Input: Pt reports improvement in mood as well as suicidal thoughts. He discusses the impact of his substance abuse on his life and remains committed to going to inpatient treatment. Pt appears with improving insight into condition and need for care. He denied any further suicidal thoughts and appears to be implementing some coping skills to managing mood disturbance. No noted agitation or aggression. He is compliant with medication regiment and appears to accept the benefit of this for treatment of his mental illness. Group Spec/RT/OT/CAMPOS Present: VIKRAM Tipton Group Spec/RT/OT/CAMPOS Input: Pt has not participated in groups since moving to the 2700 unit yesterday. Discharge Plan Pt is scheduled to be admitted to inpatient substance abuse rehab through [facility] on Sunday. Documentation Scribe: CAMDEN Lugo Jonathan LMHC Jul 10, 2017 12:42
--- NOTE | 2017-07-10 13:13 | HHI.PR ---
Subjective Remarks Patient seen and examined Complains of abdominal right upper quadrant pain Nausea without any emesis Denies any headaches Objective Vitals Vital Signs Date Time Temp Pulse Resp B/P (MAP) Pulse Ox O2 Delivery O2 Flow Rate FiO2 07/10/17 06:10 97.1 92 16 102/55 (71) 92 07/09/17 17:19 98.0 103 18 133/68 (89) 100 I/O 07/09/17 07/09/17 07/09/17 07/10/17 07/10/17 07/10/17 07:00 15:00 23:00 07:00 15:00 23:00 Intake Total 240 ml 240 ml Balance 240 ml 240 ml Intake Oral 240 ml 240 ml # Voids 1 Result Diagram: 07/09/17 1200 07/07/17 0705 Objective Remarks GENERAL: NAD SKIN: Warm and dry. HEAD: Normocephalic. EYES: No scleral icterus. No injection or drainage. NECK: Supple, trachea midline. No JVD or lymphadenopathy. CARDIOVASCULAR: Tachycardia Regular rate and rhythm without murmurs, gallops, or rubs. RESPIRATORY: Breath sounds equal bilaterally. No accessory muscle use. GASTROINTESTINAL: Abdomen soft, non-tender, nondistended. MUSCULOSKELETAL: No cyanosis, or edema. BACK: Nontender without obvious deformity. No CVA tenderness. A/P Problem List: (1) HIV positive ICD Code: Z21 - Asymptomatic human immunodeficiency virus [HIV] infection status (2) Tachycardia ICD Code: R00.0 - Tachycardia, unspecified (3) Abdominal left lower quadrant tenderness ICD Code: R10.814 - Left lower quadrant abdominal tenderness (4) Vitamin D deficiency ICD Code: E55.9 - Vitamin D deficiency, unspecified Assessment and Plan 26-year-old man with Suicidal ideation Management per psychiatry Continue Faria act HIV positive CD4 count, hepatitis profile pending QuantiFERON TB test pending Continue with HAART therapy Appreciate input from infectious disease specialist Tachycardia-improving Monitor Abdominal pain Check abdominal x-ray DVT prophylaxis: Encourage ambulation Problem Qualifiers (1) Abdominal left lower quadrant tenderness: Qualified Codes: R10.824 - Left lower quadrant rebound abdominal tenderness Dioni Last MD Jul 10, 2017 13:13
--- NOTE | 2017-07-10 15:44 | RADRPT ---
EXAM DATE/TIME: 07/10/2017 14:22 [facility] COMPARISON: CT ABDOMEN & PELVIS W CONTRAST, July 06, 2017, 2:24. ABDOMEN FLAT & UPRIGHT, July 08, 2017, 14:41. INDICATIONS : Abdominal pain and nausea. MEDICAL HISTORY : HIV. Hepatitis C. SURGICAL HISTORY : None. ENCOUNTER: Initial ACUITY: 1 day PAIN SCORE: 8/10 LOCATION: abdomen. FINDINGS: Supine and upright views of the abdomen demonstrate air within small and large bowel in a nonobstruct anisha pattern. No organomegaly or abnormal calcifications are identified. No abnormal mass effect is ap preciated. Upright image demonstrates no free intraperitoneal air or significant air-fluid level. Vis ualized bones demonstrate no acute finding and lower lung zones are clear. CONCLUSION: Normal examination of the abdomen. Garrick Ellison MD on July 10, 2017 at 15:41 Board Certified Radiologist. This report was verified electronically.
[2017-07-10 17:08] VITALS: BP 147/96; PULSE 94; RESP 18; TEMP 98.3; O2SAT 98
[2017-07-10] MEDS: traZODone HCL 100 MG TAB PO PRN (21:16)
[2017-07-10 23:53] LABS: CD 19 PERCENT 8 % (6-29); CD3 ABSOLUTE 1268 (840-3060); CD4/CD8 RATIO 0.4 (0.86-5.00); CD8 ABSOLUTE 833 (180-1170); LYMPHOCYTES, ABSOLUTE 1482 (850-3900)
[2017-07-11 06:02] VITALS: BP 101/60; PULSE 82; RESP 18; TEMP 97.6; O2SAT 99
[2017-07-11] MEDS: CHOLECALCIFEROL (VIT D3) 1000 UNIT TAB PO SCH (09:01)
[2017-07-11] MEDS: ABACAVIR SULFATE 300 MG TAB PO SCH (09:01)
[2017-07-11] MEDS: DOLUTEGRAVIR SODIUM 50 MG TAB PO SCH (09:02)
--- NOTE | 2017-07-11 09:05 | HHI.PYPN ---
Subjective Remarks Patient seen and examined with nurse. Chart reviewed. Case discussed with nursing staff. On my examination today, externalizing cluster B personality traits more evident. He engages in some staff splitting. He is irritable and says he feels like he is not being heard. I do give him some time to ventilate on this point. He thinks people are not taking him seriously and threatens on discharge to "show how much of a show it is" which I take as a threat to make some sort of suicidal gesture after discharge. He makes this threat more concrete by gesturing out his window and saying "wouldn't it be nice to hang from that tree." Despite these threats, he remains future oriented with goal of entering into drug rehab. He endorses ongoing SI "off and on." Denies side effects from medications but does not feel like the lithium is helping at all. I recommend giving this agent more time to work, but he wants to switch back to an antipsychotic. We discuss the R/B/A of Seroquel, especially in light of transient neutropenia he experienced earlier in the hospital stay. No physical complaints. Review of Systems Except as stated in HPI: all other systems reviewed are Neg Mental Status Examination Appearance: Appropriate Consciousness: Alert Orientation: x4 Motor Activity: Other (no abnormal motor movements noted) Speech: Unremarkable Language: Adequate Fund of Knowledge: Adequate Attention and Concentration: Adequate Memory: Unremarkable Mood: Irritable Affect: Other (dysphoric) Thought Process & Associations: Intact, Logical, Linear Thought Content: Appropriate Hallucination Type: None Delusion Type: None Suicidal Ideation: Yes Suicidal Plan: Yes Suicidal Intention: No Homicidal Ideation: No Homicidal Plan: No Homicidal Intention: No Insight: Poor Judgment: Poor Results Labs Labs reviewed. HIV-1 DNA PCR still pending as is TB/QFT. QTc wnl on most recent EKG. Vitals/IOs Vital Signs Date Time Temp Pulse Resp B/P (MAP) Pulse Ox O2 Delivery O2 Flow Rate FiO2 07/11/17 06:02 97.6 82 18 101/60 (74) 99 Assessment & Plan Problem List: (1) Adjustment disorder with depressed mood ICD Codes: F43.21 - Adjustment disorder with depressed mood (2) Methamphetamine abuse ICD Codes: F15.10 - Other stimulant abuse, uncomplicated Assessment & Plan I suspect significant contribution from cluster B personality traits/disorder to patient's current presentation. Discontinue lithium and replace with Seroquel 50/100mg per patient preference. D/c lithium level and BMP scheduled for tomorrow morning. Plan to check another CBC Sunday morning to monitor for leukopenia. Continue to monitor on the high acuity unit. Hospitalist input noted and appreciated. Continue other medications and care as ordered. Justification for Cont. Inpt. Med changes. Monitoring for impairments in safety. Discharge Planning Possible discharge by the end of the week. Request HC Surrog/Guard Advoc?: No Oziel Solano MD Jul 11, 2017 09:05
[2017-07-11] MEDS: QUEtiapine FUMARATE 25 MG TAB PO SCH (09:15)
[2017-07-11] MEDS: LORazepam 1 MG TAB PO PRN (14:59)
[2017-07-11 15:15] LABS: MITOGEN MINUS NIL RESULT >10.00 IU/mL; NIL RESULT 0.06 IU/mL; QUANTIFERON TB GOLD RESULT Negative (Negative)
--- NOTE | 2017-07-11 15:39 | HHI.PR ---
Subjective Remarks HAS SOME ABDOMINAL PAIN SOMETIMES HAS A BOWEL MOVEMENT MAYBE EVERY 2 TO 3 DAYS DOES NOT EAT MUCH HE STATES Objective Vitals Vital Signs Date Time Temp Pulse Resp B/P (MAP) Pulse Ox O2 Delivery O2 Flow Rate FiO2 07/11/17 06:02 97.6 82 18 101/60 (74) 99 07/10/17 17:08 98.3 94 18 147/96 (113) 98 Result Diagram: 07/09/17 1200 07/07/17 0705 Other Results Laboratory Tests Test 07/09/17 05:56 07/09/17 12:00 Absolute Lymphocytes (Cell Immunity 1482 Percent CD3 Cells 85 % Absolute CD3 Count 1268 Percent CD3-/CD16+/CD56+ Cells 5 % Absolute CD3-/CD16+/CD56+ Count 79 Percent CD4 Cells 26 % Absolute CD4 Count 374 T-Newcomb/Suppressor Ratio 0.4 Percent CD8 Cells 59 % Absolute CD8 Count 833 Percent CD19 Cells 8 % Absolute CD19 Count 129 Rapid Plasma Reagin NON-REACTIVE Hepatitis A IgM Antibody NEGATIVE Hepatitis B Surface Antigen NEGATIVE Hepatitis B Core IgM Antibody NEGATIVE Hepatitis C Antibody REACTIVE TB Test (QFT) Gold In Tube Negative TB Test (QFT) Nil 0.06 IU/mL TB Test (QFT) Mitogen Minus Nil >10.00 IU/mL TB Test (QFT) Antigen Minus Nil 0.00 IU/mL White Blood Count 4.6 TH/MM3 Red Blood Count 5.37 MIL/MM3 Hemoglobin 13.9 GM/DL Hematocrit 42.7 % Mean Corpuscular Volume 79.6 FL Mean Corpuscular Hemoglobin 25.8 PG Mean Corpuscular Hemoglobin Concent 32.5 % Red Cell Distribution Width 15.2 % Platelet Count 273 TH/MM3 Mean Platelet Volume 6.8 FL Neutrophils (%) (Auto) 39.7 % Lymphocytes (%) (Auto) 45.3 % Monocytes (%) (Auto) 9.9 % Eosinophils (%) (Auto) 4.6 % Basophils (%) (Auto) 0.5 % Neutrophils # (Auto) 1.8 TH/MM3 Lymphocytes # (Auto) 2.1 TH/MM3 Monocytes # (Auto) 0.5 TH/MM3 Eosinophils # (Auto) 0.2 TH/MM3 Basophils # (Auto) 0.0 TH/MM3 CBC Comment AUTO DIFF Differential Comment AUTO DIFF CONFIRMED Imaging Last Impressions Abdomen X-Ray 07/10/17 0000 Signed Impressions: Service Date/Time: Monday, July 10, 2017 14:22 - CONCLUSION: Normal examination of the abdomen. Garrick Ellison MD Chest X-Ray 07/06/17 0000 Signed Impressions: Service Date/Time: Thursday, July 06, 2017 00:39 - CONCLUSION: 1. No acute cardiopulmonary disease. Oziel Lambert MD Abdomen/Pelvis CT 07/06/17 0000 Signed Impressions: Service Date/Time: Thursday, July 06, 2017 02:24 - CONCLUSION: 1. Findings of mild small bowel ileus in the left side of the abdomen. Oziel Lambert MD Objective Remarks GENERAL: AWAKE ALERT ORIENTED X3 TALKATIVE AND COOPERATIVE SKIN: Warm and dry. HEAD: Atraumatic. Normocephalic. EYES: Pupils equal and round. No scleral icterus. No injection or drainage. EOMI ENT: No nasal bleeding or discharge. Mucous membranes pink and moist. TONGUE MIDLINE NECK: Trachea midline. No JVD. SUPPLE CARDIOVASCULAR: Regular rate and rhythm. S1,S2 NO S3 OR S4 RESPIRATORY: No accessory muscle use. Clear to auscultation. Breath sounds equal bilaterally. GASTROINTESTINAL: Abdomen soft, non-tender, nondistended. Hepatic and splenic margins not palpable. MUSCULOSKELETAL: Extremities without clubbing, cyanosis, or edema. No obvious deformities. NEUROLOGICAL: Awake and alert. No obvious cranial nerve deficits. Motor grossly within normal limits. Five out of 5 muscle strength in the arms and legs. Normal speech. PSYCHIATRIC: Appropriate mood and affect; insight and judgment normal. Procedures NONE Medications and IVs Current Medications Iohexol (Omnipaque 350 Inj) 70 ml STK-MED ONCE IVCONTRAST Last administered on 07/06/17 02:35; Start 07/06/17 at 02:35; Stop 07/06/17 at 02:36; Status DC Lorazepam (Ativan) 1 mg Q6H PRN PO MODERATE TO SEVERE ANXIETY Last administered on 07/11/17 14:59; Start 07/06/17 at 12:30 Lorazepam (Ativan Inj) 1 mg Q6H PRN IM MODERATE TO SEVERE ANXIETY; Start 07/06 at 12:30 Acetaminophen (Tylenol) 650 mg Q4H PRN PO Pain 1-5 or Temp >101F Last administered on 07/07/17 09:16; Start 07/06/17 at 12:30 Magnesium Hydroxide (Milk Of Magnesia Liq) 30 ml DAILY PRN PO Mild-moderate constipation; Start 07/06/17 at 12:30 Al Hydrox/Mg Hydrox/Simethicone (Mag-Al Plus Susp Liq) 30 ml Q6H PRN PO DYSPEPSIA; Start 07/06/17 at 12:30 Trazodone HCl (Desyrel) 50 mg HS PRN PO INSOMNIA Last administered on 21:05; Start 07/06/17 at 12:30; Stop 07/10/17 at 14:35; Status DC Hydroxyzine HCl (Atarax) 50 mg Q6H PRN PO ANXIETY Last administered on 17:23; Start 07/06/17 at 12:30 Pneumococcal Polyvalent Vaccine (Pneumovax-23 Inj) 25 mcg ONCE ONCE IM Last administered on 07/07/17 10:42; Start 07/07/17 at 10:00; Stop 07/07/17 at 10 :01; Status DC Abacavir Sulfate (Ziagen) 600 mg DAILY PO Last administered on 07/11/17 09:01 ; Start 07/07/17 at 09:00 Lamivudine (Epivir) 300 mg DAILY PO Last administered on 07/11/17 09:01; Start 07/07/17 at 09:00 Albuterol Sulfate (Proair Hfa Inh) 2 puff Q4H PRN INH shortness of breath/ wheezing; Start 07/06/17 at 19:00 Senna/Docusate Sodium (Ying-Colace) 2 tab ONCE ONCE PO Last administered on 12:06; Start 07/07/17 at 11:30; Stop 07/07/17 at 11:35; Status DC Cholecalciferol (Vitamin D3) 1,000 units DAILY PO Last administered on 09:01; Start 07/07/17 at 11:45 [place] Carbonate (Lithotabs) 300 mg BID PO Last administered on 07/10/17 20: 25; Start 07/09/17 at 21:00; Stop 07/11/17 at 09:07; Status DC Trazodone HCl (Desyrel) 100 mg HS PRN PO INSOMNIA Last administered on 21:16; Start 07/10/17 at 21:00 Quetiapine Fumarate (SEROquel) 50 mg DAILY PO Last administered on 07/11/17 09:15; Start 07/11/17 at 09:15 Quetiapine Fumarate (SEROquel) 100 mg HS PO ; Start 07/11/17 at 21:00 A/P Problem List: (1) HIV positive ICD Code: Z21 - Asymptomatic human immunodeficiency virus [HIV] infection status Plan: care plan discussed with ID team, follow up blood work, obtain old records continue HIV rx, follow up with outpatient MD (2) Tachycardia ICD Code: R00.0 - Tachycardia, unspecified Plan: asymptomatic, may be volume depleted PO hydration encouraged (3) Abdominal left lower quadrant tenderness ICD Code: R10.814 - Left lower quadrant abdominal tenderness Plan: HAS SOME PAIN ON AND OFF- ONLY HAS BM EVERY 2 TO 3 DAYS AT HOME MAYBE OVERLY SENSITIVE TO BOWEL DISTENTION (4) Vitamin D deficiency ICD Code: E55.9 - Vitamin D deficiency, unspecified Plan: likely due to poor diet and inadequate sun exposure add vit d Assessment and Plan 26-year-old man with Suicidal ideation Management per psychiatry Continue Faria act HIV positive CD4 count, hepatitis profile pending QuantiFERON TB test pending--NEGATIVE Continue with HAART therapy Appreciate input from infectious disease specialist Tachycardia-improving Monitor Abdominal pain Check abdominal x-ray- STABLE DVT prophylaxis: Encourage ambulation Discharge Planning MEDS FOR CONSTIPATION Problem Qualifiers (1) Abdominal left lower quadrant tenderness: Qualified Codes: R10.824 - Left lower quadrant rebound abdominal tenderness Francisco Adams DO Jul 11, 2017 15:39
[2017-07-11] MEDS ORDERED: MAGNESIUM HYDROXIDE SUSP 30 ML CUP PO PRN (15:45)
[2017-07-11] MEDS ORDERED: NALOXONE HCL 0.4 MG/ML AMP IV PUSH PRN (15:45)
[2017-07-11] MEDS ORDERED: BISACODYL 10 MG SUPP RECTAL PRN (15:45)
[2017-07-11] MEDS ORDERED: LACTULOSE SYRUP 20 GM/30 ML CUP PO PRN (15:45)
[2017-07-11] MEDS ORDERED: SENNOSIDES 8.6 MG TAB PO PRN (15:45)
[2017-07-11 16:52] VITALS: BP 105/63; PULSE 90; RESP 18; TEMP 97.6; O2SAT 97
[2017-07-11] MEDS: QUEtiapine FUMARATE 100 MG TAB PO SCH (20:33)
[2017-07-11] MEDS: DOCUSATE SODIUM 50 MG/SENNA 8.6 MG TAB PO SCH (20:33)
[2017-07-12 05:47] VITALS: BP 105/58; PULSE 81; RESP 16; TEMP 98; O2SAT 99
[2017-07-12] MEDS: DOCUSATE SODIUM 50 MG/SENNA 8.6 MG TAB PO SCH ×2 (08:12→21:11)
[2017-07-12] MEDS: QUEtiapine FUMARATE 25 MG TAB PO SCH (08:12)
[2017-07-12] MEDS: DOLUTEGRAVIR SODIUM 50 MG TAB PO SCH (08:12)
[2017-07-12] MEDS: CHOLECALCIFEROL (VIT D3) 1000 UNIT TAB PO SCH (08:26)
[2017-07-12] MEDS: ABACAVIR SULFATE 300 MG TAB PO SCH (08:27)
--- NOTE | 2017-07-12 08:34 | HHI.PYPN ---
Subjective Remarks Patient seen and examined. Chart reviewed. Case discussed with nursing staff. No behavioral issues overnight. Case discussed with counselor who reports that [facility] rehab program can accept the patient tomorrow, Sunday. The patient has completed a ROR set to this morning. On my exam, patient continues to display prominent cluster B personality traits. However, he is calmer and overall more reasonable. I suggest that he rescind the ROR to allow us to transfer him directly to rehab tomorrow, and he agrees that this is a reasonable plan. Feels like Seroquel is helping more than lithium and requests we titrate the daytime dose. Denies SI/HI. Affect appropriate. Denies side effects from meds. No physical complaints. Review of Systems Except as stated in HPI: all other systems reviewed are Neg Mental Status Examination Appearance: Appropriate Consciousness: Alert Orientation: x4 Motor Activity: Other (no motoric abnormalities noted) Speech: Unremarkable Language: Adequate Fund of Knowledge: Adequate Attention and Concentration: Adequate Memory: Unremarkable (grossly intact on clinical exam) Mood: Appropriate, Other (calmer and less irritable) Affect: Appropriate Thought Process & Associations: Intact, Logical, Goal directed, Linear Thought Content: Appropriate Hallucination Type: None Delusion Type: None Suicidal Ideation: No Suicidal Plan: No Suicidal Intention: No Homicidal Ideation: No Homicidal Plan: No Homicidal Intention: No Insight: Fair Judgment: Adequate (fair)Poor Results Labs Labs reviewed. TB neg. Vitals/IOs Vital Signs Date Time Temp Pulse Resp B/P (MAP) Pulse Ox O2 Delivery O2 Flow Rate FiO2 07/12/17 05:47 98.0 81 16 105/58 (74) 99 Assessment & Plan Problem List: (1) Adjustment disorder with depressed mood ICD Codes: F43.21 - Adjustment disorder with depressed mood (2) Methamphetamine abuse ICD Codes: F15.10 - Other stimulant abuse, uncomplicated Assessment & Plan Titrate Seroquel to 100 mg twice daily. Follow-up CBC ordered for tomorrow morning. Continue to monitor on the inpatient unit. I did offer to transfer the patient to the lower acuity unit but he wishes to remain where he is at. Hospitalist input noted and appreciated. Continue other medications and care as ordered. Patient has agreed to rescind his right of release. Justification for Cont. Inpt. Med changes. Risk for decompensation in less restrictive environment. Discharge Planning Transfer directly to [facility] rehabilitation tomorrow, Sunday. Request HC Surrog/Guard Advoc?: No Oziel Solano MD Jul 12, 2017 08:34
[2017-07-12] MEDS: hydrOXYzine HCL 50 MG TAB PO PRN ×2 (08:51→21:12)
[2017-07-12] MEDS ORDERED: QUEtiapine FUMARATE 100 MG TAB PO SCH (09:00)
[2017-07-12] MEDS ORDERED: QUEtiapine FUMARATE 25 MG TAB PO ONE (09:00)
--- NOTE | 2017-07-12 12:25 | HHI.PR ---
Subjective Remarks HAS SOME ABDOMINAL PAIN SOMETIMES HAS A BOWEL MOVEMENT MAYBE EVERY 2 TO 3 DAYS DOES NOT EAT MUCH HE STATES 11-16 PATIENT STATES HE IS HUNGRY NO OTHER COMPLAINTS DW PATIENT AND RN Objective Vitals Vital Signs Date Time Temp Pulse Resp B/P (MAP) Pulse Ox O2 Delivery O2 Flow Rate FiO2 07/12/17 05:47 98.0 81 16 105/58 (74) 99 07/11/17 16:52 97.6 90 18 105/63 (77) 97 Result Diagram: 07/09/17 1200 Imaging Last Impressions Abdomen X-Ray 07/10/17 0000 Signed Impressions: Service Date/Time: Monday, July 10, 2017 14:22 - CONCLUSION: Normal examination of the abdomen. Garrick Ellison MD Chest X-Ray 07/06/17 0000 Signed Impressions: Service Date/Time: Thursday, July 06, 2017 00:39 - CONCLUSION: 1. No acute cardiopulmonary disease. Oziel Lambert MD Abdomen/Pelvis CT 07/06/17 0000 Signed Impressions: Service Date/Time: Thursday, July 06, 2017 02:24 - CONCLUSION: 1. Findings of mild small bowel ileus in the left side of the abdomen. Oziel Lambert MD Objective Remarks GENERAL: AWAKE ALERT ORIENTED X3 TALKATIVE AND COOPERATIVE SKIN: Warm and dry. HEAD: Atraumatic. Normocephalic. EYES: Pupils equal and round. No scleral icterus. No injection or drainage. EOMI ENT: No nasal bleeding or discharge. Mucous membranes pink and moist. TONGUE MIDLINE NECK: Trachea midline. No JVD. SUPPLE CARDIOVASCULAR: Regular rate and rhythm. S1,S2 NO S3 OR S4 RESPIRATORY: No accessory muscle use. Clear to auscultation. Breath sounds equal bilaterally. GASTROINTESTINAL: Abdomen soft, non-tender, nondistended. Hepatic and splenic margins not palpable. MUSCULOSKELETAL: Extremities without clubbing, cyanosis, or edema. No obvious deformities. NEUROLOGICAL: Awake and alert. No obvious cranial nerve deficits. Motor grossly within normal limits. Five out of 5 muscle strength in the arms and legs. Normal speech. PSYCHIATRIC: INAppropriate mood and affect; insight and judgment normal. Procedures NONE Medications and IVs Current Medications Iohexol (Omnipaque 350 Inj) 70 ml STK-MED ONCE IVCONTRAST Last administered on 07/06/17t 02:35; Start 07/06/17 at 02:35; Stop 07/06/17 at 02:36; Status DC Lorazepam (Ativan) 1 mg Q6H PRN PO MODERATE TO SEVERE ANXIETY Last administered on 07/11/17 14:59; Start 07/06/17 at 12:30 Lorazepam (Ativan Inj) 1 mg Q6H PRN IM MODERATE TO SEVERE ANXIETY; Start 07/06 at 12:30 Acetaminophen (Tylenol) 650 mg Q4H PRN PO Pain 1-5 or Temp >101F Last administered on 07/07/17 09:16; Start 07/06/17 at 12:30 Magnesium Hydroxide (Milk Of Magnesia Liq) 30 ml DAILY PRN PO Mild-moderate constipation; Start 07/06/17 at 12:30; Stop 07/11/17 at 15:49; Status DC Al Hydrox/Mg Hydrox/Simethicone (Mag-Al Plus Susp Liq) 30 ml Q6H PRN PO DYSPEPSIA; Start 07/06/17 at 12:30 Trazodone HCl (Desyrel) 50 mg HS PRN PO INSOMNIA Last administered on 21:05; Start 07/06/17 at 12:30; Stop 07/10/17 at 14:35; Status DC Hydroxyzine HCl (Atarax) 50 mg Q6H PRN PO ANXIETY Last administered on 08:51; Start 07/06/17 at 12:30 Pneumococcal Polyvalent Vaccine (Pneumovax-23 Inj) 25 mcg ONCE ONCE IM Last administered on 07/07/17 10:42; Start 07/07/17 at 10:00; Stop 07/07/17 at 10 :01; Status DC Abacavir Sulfate (Ziagen) 600 mg DAILY PO Last administered on 07/12/17 08:27 ; Start 07/07/17 at 09:00 Lamivudine (Epivir) 300 mg DAILY PO Last administered on 07/12/17 08:12; Start 07/07/17 at 09:00 Albuterol Sulfate (Proair Hfa Inh) 2 puff Q4H PRN INH shortness of breath/ wheezing; Start 07/06/17 at 19:00 Senna/Docusate Sodium (Ying-Colace) 2 tab ONCE ONCE PO Last administered on 12:06; Start 07/07/17 at 11:30; Stop 07/07/17 at 11:35; Status DC Cholecalciferol (Vitamin D3) 1,000 units DAILY PO Last administered on 08:26; Start 07/07/17 at 11:45 [place] Carbonate (Lithotabs) 300 mg BID PO Last administered on 07/10/17 20: 25; Start 07/09/17 at 21:00; Stop 07/11/17 at 09:07; Status DC Trazodone HCl (Desyrel) 100 mg HS PRN PO INSOMNIA Last administered on 21:16; Start 07/10/17 at 21:00 Quetiapine Fumarate (SEROquel) 50 mg DAILY PO Last administered on 07/12/17 08:12; Start 07/11/17 at 09:15; Stop 07/12/17 at 08:35; Status DC Quetiapine Fumarate (SEROquel) 100 mg HS PO Last administered on 07/11/17 20: 33; Start 07/11/17 at 21:00 Naloxone HCl (Narcan Inj) 0.4 mg UNSCH PRN IV PUSH SEE LABEL COMMENTS; Start 07/11/17 at 15:45 Senna/Docusate Sodium (Ying-Colace) 1 tab BID PO Last administered on 08:12; Start 07/11/17 at 21:00 Magnesium Hydroxide (Milk Of Magnesia Liq) 30 ml Q12H PRN PO Mild constipation ; Start 07/11/17 at 15:45 Sennosides (Senokot) 17.2 mg Q12H PRN PO Moderate constipation; Start at 15:45 Bisacodyl (Dulcolax Supp) 10 mg DAILY PRN RECTAL SEVERE CONSITIPATION; Start 07/11/17 at 15:45 Lactulose (Lactulose Liq) 30 ml DAILY PRN PO SEVERE CONSITIPATION; Start 07/11 at 15:45 Quetiapine Fumarate (SEROquel) 100 mg DAILY PO Last administered on 07/12/17 11:18; Start 07/12/17 at 09:00 Quetiapine Fumarate (SEROquel) 50 mg ONCE ONCE PO Last administered on 11/16/ 17at 11:19; Start 07/12/17 at 09:00; Stop 07/12/17 at 09:01; Status DC A/P Problem List: (1) HIV positive ICD Code: Z21 - Asymptomatic human immunodeficiency virus [HIV] infection status Plan: care plan discussed with ID team, follow up blood work, obtain old records continue HIV rx, follow up with outpatient MD (2) Tachycardia ICD Code: R00.0 - Tachycardia, unspecified Plan: asymptomatic, may be volume depleted PO hydration encouraged (3) Abdominal left lower quadrant tenderness ICD Code: R10.814 - Left lower quadrant abdominal tenderness Plan: HAS SOME PAIN ON AND OFF- ONLY HAS BM EVERY 2 TO 3 DAYS AT HOME MAYBE OVERLY SENSITIVE TO BOWEL DISTENTION (4) Vitamin D deficiency ICD Code: E55.9 - Vitamin D deficiency, unspecified Plan: likely due to poor diet and inadequate sun exposure add vit d Assessment and Plan 26-year-old man with Suicidal ideation Management per psychiatry Continue Faria act HIV positive CD4 count, hepatitis profile pending QuantiFERON TB test pending--NEGATIVE Continue with HAART therapy Appreciate input from infectious disease specialist Tachycardia-improving Monitor Abdominal pain Check abdominal x-ray- STABLE DVT prophylaxis: Encourage ambulation Discharge Planning MEDS FOR CONSTIPATION Problem Qualifiers (1) Abdominal left lower quadrant tenderness: Qualified Codes: R10.824 - Left lower quadrant rebound abdominal tenderness Francisco Adams DO Jul 12, 2017 12:25
[2017-07-12 18:18] VITALS: BP 103/60; PULSE 103; RESP 17; TEMP 97.5; O2SAT 99
[2017-07-12] MEDS: traZODone HCL 100 MG TAB PO PRN (21:11)
[2017-07-12] MEDS: QUEtiapine FUMARATE 100 MG TAB PO SCH (21:11)
[2017-07-13] MEDS: hydrOXYzine HCL 50 MG TAB PO PRN ×3 (04:42→20:22)
[2017-07-13 05:39] VITALS: BP 110/57; PULSE 95; RESP 18; TEMP 97.8; O2SAT 100
[2017-07-13 07:47] LABS: AUTOMATED NEUTROPHIL # 1.5 TH/MM3 (1.8-7.7); BASOPHIL % 0.5 % (0.0-2.0); EOSINOPHIL # 0.2 TH/MM3 (0-0.4); HEMATOCRIT 39.1 % (39.0-51.0); HEMO FLAGS DIFF FINAL; LYMPH % 48.5 % (9.0-44.0); MEAN CELL VOLUME 78.7 FL (80.0-100.0); MEAN CORPUSCULAR HEMOGLOBIN 26.8 PG (27.0-34.0); MEAN CORPUSCULAR HGB CONC 34.1 % (32.0-36.0); MONO % 9.1 % (0.0-8.0); NEUT % 36.9 % (16.0-70.0); PLATELET COUNT 283 TH/MM3 (150-450); RED BLOOD COUNT 4.97 MIL/MM3 (4.50-5.90); RED CELL DISTRIBUTION WIDTH 15.2 % (11.6-17.2); WHITE BLOOD COUNT 4.2 TH/MM3 (4.0-11.0)
[2017-07-13] MEDS: ABACAVIR SULFATE 300 MG TAB PO SCH (09:00)
--- NOTE | 2017-07-13 09:27 | HHI.PYPN ---
Subjective Remarks Patient seen and examined with nurse. Chart reviewed. Case discussed with nursing staff. No behavioral issues overnight. Patient was supposed to go to [facility] drug rehab today. On my exam, patient exhibits prominent cluster B personality traits. I suspect that what follows is his attempt to scuttle his discharge to rehab because he no longer wishes to pursue chem dep treatment. He tells me that there is a male peer (WJ) on the unit who is irritating him, and he is having thoughts of killing this male peer. Patient says that he ( patient) believes there are "undercover core microarchitect" on the unit and that he told this to the male peer who said in reply that patient is a "sullivan copyman." Patient refuses to contract for safety in the community and says of the likelihood of violence, "next time it's just gonna happen." He is ambivalent at best about rehab noting, "I don't know if I'm gonna stay there," but at the same time he defiantly taunts this physician to "send me" to rehab despite his current reported symptomatology. No side effects from medications. No physical complaints. Review of Systems ROS Limitations: Poor Historian Except as stated in HPI: all other systems reviewed are Neg Mental Status Examination Appearance: Appropriate Consciousness: Alert Orientation: x4 Motor Activity: Other (no abnormal motor movements noted) Speech: Unremarkable Language: Adequate Fund of Knowledge: Adequate Attention and Concentration: Adequate Memory: Unremarkable (grossly intact on clinical exam) Mood: Oppositional, Irritable Affect: Other (restricted and consistent with stated mood) Thought Process & Associations: Intact, Logical, Goal directed, Linear Thought Content: Appropriate Hallucination Type: None Delusion Type: Paranoid Suicidal Ideation: No Suicidal Plan: No Suicidal Intention: No Homicidal Ideation: Yes (see above) Homicidal Plan: No Homicidal Intention: No Insight: Poor Judgment: Poor Results Labs Test 07/13/17 07:21 White Blood Count 4.2 TH/MM3 Red Blood Count 4.97 MIL/MM3 Hemoglobin 13.3 GM/DL Hematocrit 39.1 % Mean Corpuscular Volume 78.7 FL Mean Corpuscular Hemoglobin 26.8 PG Mean Corpuscular Hemoglobin Concent 34.1 % Red Cell Distribution Width 15.2 % Platelet Count 283 TH/MM3 Mean Platelet Volume 6.5 FL Neutrophils (%) (Auto) 36.9 % Lymphocytes (%) (Auto) 48.5 % Monocytes (%) (Auto) 9.1 % Eosinophils (%) (Auto) 5.0 % Basophils (%) (Auto) 0.5 % Neutrophils # (Auto) 1.5 TH/MM3 Lymphocytes # (Auto) 2.0 TH/MM3 Monocytes # (Auto) 0.4 TH/MM3 Eosinophils # (Auto) 0.2 TH/MM3 Basophils # (Auto) 0.0 TH/MM3 CBC Comment DIFF FINAL Differential Comment Labs reviewed. Mildly low ANC noted. Vitals/IOs Vital Signs Date Time Temp Pulse Resp B/P (MAP) Pulse Ox O2 Delivery O2 Flow Rate FiO2 07/13/17 05:39 97.8 95 18 110/57 (74) 100 Assessment & Plan Problem List: (1) Adjustment disorder with depressed mood ICD Codes: F43.21 - Adjustment disorder with depressed mood (2) Methamphetamine abuse ICD Codes: F15.10 - Other stimulant abuse, uncomplicated (3) cluster b personality traits Assessment & Plan Taken at face value, patient reports of "undercover core microarchitect" on the unit suggest psychotic process, but as noted above I suspect that this acute worsening of symptoms is at least in part a face-saving way of delaying entry into chem dep treatment, and I suspect that he likely remains precontemplative with respect to changing his pattern of use. However, he still insists on leaving the hospital today, but he cannot be allowed to do so given the ongoing acute safety concerns. I will therefore initiate a petition for involuntary psychiatric hospitalization and consult for second opinion. I will titrate patient's Seroquel over the weekend to a target dose of 450mg/day. Even if patient is not experiencing jose elias eva psychosis, the mood stabilizing properties of Seroquel will likely be of benefit in this patient. I have left orders to separate patient and male peer as much as able, although both likely need the high acuity unit. Aggressive/assaultive precautions already ordered. Check a CBC Sunday to follow up low ANC. Continue to monitor on the high acuity unit. Continue other medications and care as ordered. Case d/w RN and charge master specialist. Justification for Cont. Inpt. Concern for impairment in safety. Medication changes. High risk for decompensation in less restrictive environment. Discharge Planning Pending stabilization. Case discussed with counselor who will try to once again reschedule entry into chemical dependency rehabilitation program. Request HC Surrog/Guard Advoc?: No Oziel Solano MD Jul 13, 2017 09:27
[2017-07-13] MEDS: DOCUSATE SODIUM 50 MG/SENNA 8.6 MG TAB PO SCH ×2 (09:49→20:22)
[2017-07-13] MEDS: DOLUTEGRAVIR SODIUM 50 MG TAB PO SCH (09:49)
[2017-07-13] MEDS: CHOLECALCIFEROL (VIT D3) 1000 UNIT TAB PO SCH (09:54)
[2017-07-13] MEDS ORDERED: PILL SPLITTER OTHER PRN (10:45)
[2017-07-13] MEDS: LORazepam 1 MG TAB PO PRN (12:02)
--- NOTE | 2017-07-13 13:17 | PD.TTN ---
Patient Problems 1. Discharge planning 2. Medication compliance 3. Knowledge deficit 4. Lack of coping skills Progress Toward Goals Provider Present: Dr. Dominic Solano Provider Input: Pt medication regiment has been adjusted including addition of [place]. 07/13- A petition has been started on pt due to his behavior and threats of violence to peers. Nurse(s) Present: Khadar Rebolledo, RN Nurse(s) Input: Pt affect appears to be improving, he denies any suicidal thoughts, denies any hallucinations, is compliant with medication regiment and has been no behavioral issue on unit. Psychiatric Counselors Present: CAMDEN Lugo Psych Therapist Input: Pt reports improvement in mood as well as suicidal thoughts. He discusses the impact of his substance abuse on his life and remains committed to going to inpatient treatment. Pt appears with improving insight into condition and need for care. He denied any further suicidal thoughts and appears to be implementing some coping skills to managing mood disturbance. No noted agitation or aggression. He is compliant with medication regiment and appears to accept the benefit of this for treatment of his mental illness. 07/13- Pt appears agitated, labile, guarded, discharge focused and organized. Pt is struggling as he was upset with a peer on the unit and made threats against him. Pt appears with poor coping and emotional regulation skills. There appears to be an element of possible hesistation to go to the inpatient substance abuse rehab that is waiting for him as he was to be discharged there today but cannot due to threats and behavior. He does not accept responsibility for his behavior. He is compliant with medication regiment and feels that it is not helping at night. Group Spec/RT/OT/CAMPOS Present: VIKRAM Tipton Group Spec/RT/OT/CAMPOS Input: Pt has not participated in groups since moving to the [facility] unit yesterday. 07/13- Pt is visible in the [place]. Pt will participate in group activities with encouragement. Discharge Plan Pt is scheduled to be admitted to inpatient substance abuse rehab through [facility]. Documentation Scribe: CAMDEN Lugo Jonathan LMHC Jul 13, 2017 13:17
--- NOTE | 2017-07-13 15:29 | HHI.PR ---
Subjective Remarks HAS SOME ABDOMINAL PAIN SOMETIMES HAS A BOWEL MOVEMENT MAYBE EVERY 2 TO 3 DAYS DOES NOT EAT MUCH HE STATES 07-12 PATIENT STATES HE IS HUNGRY NO OTHER COMPLAINTS DW PATIENT AND RN 07-13 NO NEW COMPLAINTS DW RN AND PATIENT WILL SIGN OFF Objective Vitals Vital Signs Date Time Temp Pulse Resp B/P (MAP) Pulse Ox O2 Delivery O2 Flow Rate FiO2 07/13/17 05:39 97.8 95 18 110/57 (74) 100 07/12/17 18:18 97.5 103 17 103/60 (74) 99 Result Diagram: 07/13/17 0721 Other Results Laboratory Tests Test 07/13/17 07:21 White Blood Count 4.2 TH/MM3 Red Blood Count 4.97 MIL/MM3 Hemoglobin 13.3 GM/DL Hematocrit 39.1 % Mean Corpuscular Volume 78.7 FL Mean Corpuscular Hemoglobin 26.8 PG Mean Corpuscular Hemoglobin Concent 34.1 % Red Cell Distribution Width 15.2 % Platelet Count 283 TH/MM3 Mean Platelet Volume 6.5 FL Neutrophils (%) (Auto) 36.9 % Lymphocytes (%) (Auto) 48.5 % Monocytes (%) (Auto) 9.1 % Eosinophils (%) (Auto) 5.0 % Basophils (%) (Auto) 0.5 % Neutrophils # (Auto) 1.5 TH/MM3 Lymphocytes # (Auto) 2.0 TH/MM3 Monocytes # (Auto) 0.4 TH/MM3 Eosinophils # (Auto) 0.2 TH/MM3 Basophils # (Auto) 0.0 TH/MM3 CBC Comment DIFF FINAL Differential Comment Imaging Last Impressions Abdomen X-Ray 07/10/17 0000 Signed Impressions: Service Date/Time: Monday, July 10, 2017 14:22 - CONCLUSION: Normal examination of the abdomen. Garrick Ellison MD Chest X-Ray 07/06/17 0000 Signed Impressions: Service Date/Time: Thursday, July 06, 2017 00:39 - CONCLUSION: 1. No acute cardiopulmonary disease. Oziel Lambert MD Abdomen/Pelvis CT 07/06/17 0000 Signed Impressions: Service Date/Time: Thursday, July 06, 2017 02:24 - CONCLUSION: 1. Findings of mild small bowel ileus in the left side of the abdomen. Oziel Lambert MD Objective Remarks GENERAL: AWAKE ALERT ORIENTED X3 TALKATIVE AND COOPERATIVE SKIN: Warm and dry. HEAD: Atraumatic. Normocephalic. EYES: Pupils equal and round. No scleral icterus. No injection or drainage. EOMI ENT: No nasal bleeding or discharge. Mucous membranes pink and moist. TONGUE MIDLINE NECK: Trachea midline. No JVD. SUPPLE CARDIOVASCULAR: Regular rate and rhythm. S1,S2 NO S3 OR S4 RESPIRATORY: No accessory muscle use. Clear to auscultation. Breath sounds equal bilaterally. GASTROINTESTINAL: Abdomen soft, non-tender, nondistended. Hepatic and splenic margins not palpable. MUSCULOSKELETAL: Extremities without clubbing, cyanosis, or edema. No obvious deformities. NEUROLOGICAL: Awake and alert. No obvious cranial nerve deficits. Motor grossly within normal limits. Five out of 5 muscle strength in the arms and legs. Normal speech. PSYCHIATRIC: INAppropriate mood and affect; insight and judgment normal. Procedures NONE Medications and IVs Current Medications Iohexol (Omnipaque 350 Inj) 70 ml STK-MED ONCE IVCONTRAST Last administered on 07/06/17 02:35; Start 07/06/17 at 02:35; Stop 07/06/17 at 02:36; Status DC Lorazepam (Ativan) 1 mg Q6H PRN PO MODERATE TO SEVERE ANXIETY Last administered on 07/13/17 12:02; Start 07/06/17 at 12:30 Lorazepam (Ativan Inj) 1 mg Q6H PRN IM MODERATE TO SEVERE ANXIETY; Start 07/06 at 12:30 Acetaminophen (Tylenol) 650 mg Q4H PRN PO Pain 1-5 or Temp >101F Last administered on 07/07/17 09:16; Start 07/06/17 at 12:30 Magnesium Hydroxide (Milk Of Magnesia Liq) 30 ml DAILY PRN PO Mild-moderate constipation; Start 07/06/17 at 12:30; Stop 07/11/17 at 15:49; Status DC Al Hydrox/Mg Hydrox/Simethicone (Mag-Al Plus Susp Liq) 30 ml Q6H PRN PO DYSPEPSIA; Start 07/06/17 at 12:30 Trazodone HCl (Desyrel) 50 mg HS PRN PO INSOMNIA Last administered on 21:05; Start 07/06/17 at 12:30; Stop 07/10/17 at 14:35; Status DC Hydroxyzine HCl (Atarax) 50 mg Q6H PRN PO ANXIETY Last administered on 04:42; Start 07/06/17 at 12:30 Pneumococcal Polyvalent Vaccine (Pneumovax-23 Inj) 25 mcg ONCE ONCE IM Last administered on 07/07/17 10:42; Start 07/07/17 at 10:00; Stop 07/07/17 at 10 :01; Status DC Abacavir Sulfate (Ziagen) 600 mg DAILY PO Last administered on 07/12/17 08:27 ; Start 07/07/17 at 09:00 Lamivudine (Epivir) 300 mg DAILY PO Last administered on 07/13/17 09:49; Start 07/07/17 at 09:00 Albuterol Sulfate (Proair Hfa Inh) 2 puff Q4H PRN INH shortness of breath/ wheezing; Start 07/06/17 at 19:00 Senna/Docusate Sodium (Ying-Colace) 2 tab ONCE ONCE PO Last administered on 12:06; Start 07/07/17 at 11:30; Stop 07/07/17 at 11:35; Status DC Cholecalciferol (Vitamin D3) 1,000 units DAILY PO Last administered on 09:54; Start 07/07/17 at 11:45 [place] Carbonate (Lithotabs) 300 mg BID PO Last administered on 07/10/17 20: 25; Start 07/09/17 at 21:00; Stop 07/11/17 at 09:07; Status DC Trazodone HCl (Desyrel) 100 mg HS PRN PO INSOMNIA Last administered on 21:11; Start 07/10/17 at 21:00 Quetiapine Fumarate (SEROquel) 50 mg DAILY PO Last administered on 07/12/17 08:12; Start 07/11/17 at 09:15; Stop 07/12/17 at 08:35; Status DC Quetiapine Fumarate (SEROquel) 100 mg HS PO Last administered on 07/12/17 21: 11; Start 07/11/17 at 21:00; Stop 07/13/17 at 09:30; Status DC Naloxone HCl (Narcan Inj) 0.4 mg UNSCH PRN IV PUSH SEE LABEL COMMENTS; Start 07/11/17 at 15:45 Senna/Docusate Sodium (Ying-Colace) 1 tab BID PO Last administered on 09:49; Start 07/11/17 at 21:00 Magnesium Hydroxide (Milk Of Magnesia Liq) 30 ml Q12H PRN PO Mild constipation ; Start 07/11/17 at 15:45 Sennosides (Senokot) 17.2 mg Q12H PRN PO Moderate constipation; Start at 15:45 Bisacodyl (Dulcolax Supp) 10 mg DAILY PRN RECTAL SEVERE CONSITIPATION; Start 07/11/17 at 15:45 Lactulose (Lactulose Liq) 30 ml DAILY PRN PO SEVERE CONSITIPATION; Start 07/11 at 15:45 Quetiapine Fumarate (SEROquel) 100 mg DAILY PO Last administered on 07/12/17 11:18; Start 07/12/17 at 09:00; Stop 07/13/17 at 09:30; Status DC Quetiapine Fumarate (SEROquel) 50 mg ONCE ONCE PO Last administered on 11:19; Start 07/12/17 at 09:00; Stop 07/12/17 at 09:01; Status DC Quetiapine Fumarate (SEROquel) 150 mg DAILY PO ; Start 07/14/17 at 09:00 Quetiapine Fumarate (SEROquel) 150 mg HS PO ; Start 07/13/17 at 21:00; Stop at 21:00; Status DC Miscellaneous (Pill Splitter) 1 ea UNSCH PRN OTHER SEE LABEL COMMENTS; Start 07/13/17 at 10:45 Quetiapine Fumarate (SEROquel) 150 mg Taper HS PO ; Start 07/13/17 at 21:00; Stop 07/25/17 at 20:59 Urinary Catheter: No Vascular Central Line Catheter: No A/P Problem List: (1) HIV positive ICD Code: Z21 - Asymptomatic human immunodeficiency virus [HIV] infection status Plan: care plan discussed with ID team, follow up blood work, obtain old records continue HIV rx, follow up with outpatient MD (2) Tachycardia ICD Code: R00.0 - Tachycardia, unspecified Plan: asymptomatic, may be volume depleted PO hydration encouraged (3) Abdominal left lower quadrant tenderness ICD Code: R10.814 - Left lower quadrant abdominal tenderness Plan: HAS SOME PAIN ON AND OFF- ONLY HAS BM EVERY 2 TO 3 DAYS AT HOME MAYBE OVERLY SENSITIVE TO BOWEL DISTENTION (4) Vitamin D deficiency ICD Code: E55.9 - Vitamin D deficiency, unspecified Plan: likely due to poor diet and inadequate sun exposure add vit d Assessment and Plan 26-year-old man with Suicidal ideation Management per psychiatry Continue [facility] act HIV positive CD4 count, hepatitis profile pending QuantiFERON TB test pending--NEGATIVE Continue with HAART therapy Appreciate input from infectious disease specialist Tachycardia-improving Monitor Abdominal pain Check abdominal x-ray- STABLE DVT prophylaxis: Encourage ambulation Discharge Planning MEDS FOR CONSTIPATION WILL SIGN OFF Problem Qualifiers (1) Abdominal left lower quadrant tenderness: Qualified Codes: R10.824 - Left lower quadrant rebound abdominal tenderness Francisco Adams DO Jul 13, 2017 15:29
[2017-07-13 18:12] VITALS: BP 110/56; PULSE 102; RESP 18; TEMP 97.6; O2SAT 100
[2017-07-13 19:54] LABS: HIV 1 PROVIRAL DNA Detected (Not Detected)
[2017-07-13] MEDS: QUEtiapine FUMARATE 100 MG TAB PO SCH (20:21)
[2017-07-13] MEDS: traZODone HCL 100 MG TAB PO PRN (20:21)
[2017-07-13] MEDS ORDERED: QUEtiapine FUMARATE 100 MG TAB PO SCH (21:00)
[2017-07-14 05:59] VITALS: BP 114/61; PULSE 93; RESP 18; TEMP 97.5; O2SAT 99
[2017-07-14] MEDS: ACETAMINOPHEN 325 MG TAB PO PRN (07:32)
[2017-07-14] MEDS: hydrOXYzine HCL 50 MG TAB PO PRN ×3 (07:33→20:29)
[2017-07-14] MEDS: ABACAVIR SULFATE 300 MG TAB PO SCH (08:41)
[2017-07-14] MEDS: CHOLECALCIFEROL (VIT D3) 1000 UNIT TAB PO SCH (08:42)
[2017-07-14] MEDS: DOCUSATE SODIUM 50 MG/SENNA 8.6 MG TAB PO SCH ×2 (08:42→20:29)
[2017-07-14] MEDS: DOLUTEGRAVIR SODIUM 50 MG TAB PO SCH (08:45)
[2017-07-14] MEDS: QUEtiapine FUMARATE 100 MG TAB PO SCH ×2 (08:45→20:29)
--- NOTE | 2017-07-14 12:18 | PD.PSY.CON ---
Provisional Diagnosis Admission Date Jul 06, 2017 at 12:31 Odin I. Adjustment disorder with depressed mood History of Present Illness Service Psychiatry Consult Requested By psychiatry Reason for Consult 2nd opinion Primary Care Physician Isaias Pollock M.D. HPI Pt seen and discussed with staff. Chart reviewed. Involuntary hospitalization orders were started yesterday due to pt making homicidal and suicidal ideations on unit and insisting on discharge. Pt c/o of mood swings and states that he could not stop ruminating on ways to harm a man that he knows and himself. He states that he feels seroquel helped and he feels calmer today but remains depressed. He denies HI/SI currently but admits that mood changes frequently. Past Family Social History Coded Allergies: sulfamethoxazole (Verified Adverse Reaction, Severe, Hives, 07/06/17) trimethoprim (Verified Adverse Reaction, Severe, Hives, 07/06/17) Past Medical History hx of substance abuse, HIV+ Reported Medications Fluconazole (Fluconazole) 200 Mg Tab, 200 MG PO DAILY for Infection, TAB 0 Refills 07/06/17 Benztropine (Benztropine) 0.5 Mg Tab, 0.5 MG PO BID, #60 TAB 0 Refills 07/06/17 Haloperidol (Haloperidol) 5 Mg Tab, 5 MG PO HS, TAB 0 Refills 07/06/17 Quetiapine (Seroquel) 25 Mg Tab, 25 MG PO HS, #30 TAB 0 Refills 07/06/17 [place] Carbonate ([place] Carbonate) 300 Mg Cap, 600 MG PO HS, CAP 0 Refills 07/06/17 Aripiprazole (Abilify) 20 Mg Tab, 20 MG PO DAILY, #30 TAB 0 Refills 07/06/17 Bdtwlcpn-Bfvpqpeazlef-Wwcfyltiyi (Triumeq) 600-50-300 Mg Tab, 1 TAB PO DAILY for Mgmt Viral Infection, #30 TAB 0 Refills Hazardous agent; use appropriate precautions for handling & disposal. 07/06/17 Current Medications Medications (Trade) Dose Ordered Sig/Viviane Route Start Time Stop Time Status Last Admin (Ativan) 1 mg Q6H PRN PO 07/06/17 12:30 07/13/17 12:02 (Ativan Inj) 1 mg Q6H PRN IM 07/06/17 12:30 (Tylenol) 650 mg Q4H PRN PO 07/06/17 12:30 07/14/17 07:32 (Mag-Al Plus Susp Liq) 30 ml Q6H PRN PO 07/06/17 12:30 (Atarax) 50 mg Q6H PRN PO 07/06/17 12:30 07/14/17 07:33 (Ziagen) 600 mg DAILY PO 07/07/17 09:00 07/14/17 08:41 (Epivir) 300 mg DAILY PO 07/07/17 09:00 07/14/17 08:42 (Proair Hfa Inh) 2 puff Q4H PRN INH 07/06/17 19:00 (Vitamin D3) 1,000 units DAILY PO 07/07/17 11:45 07/14/17 08:42 (Desyrel) 100 mg HS PRN PO 07/10/17 21:00 07/13/17 20:21 (Narcan Inj) 0.4 mg UNSCH PRN IV PUSH 07/11/17 15:45 (Ying-Colace) 1 tab BID PO 07/11/17 21:00 07/14/17 08:42 (Milk Of Magnesia Liq) 30 ml Q12H PRN PO 07/11/17 15:45 (Senokot) 17.2 mg Q12H PRN PO 07/11/17 15:45 (Dulcolax Supp) 10 mg DAILY PRN RECTAL 07/11/17 15:45 (Lactulose Liq) 30 ml DAILY PRN PO 07/11/17 15:45 (SEROquel) 150 mg DAILY PO 07/14/17 09:00 07/14/17 08:45 (Pill Splitter) 1 ea UNSCH PRN OTHER 07/13/17 10:45 (SEROquel) 150 mg Taper HS PO 07/13/17 21:00 07/25/17 20:59 07/13/17 20:21 Social History Limited social support Patient's Strengths (min. 2) Verbal and has access to healthcare Physical Exam Vital Signs Vital Signs Date Time Temp Pulse Resp B/P (MAP) Pulse Ox O2 Delivery O2 Flow Rate FiO2 07/14/17 05:59 97.5 93 18 114/61 (78) 99 Mental Status Examination Appearance: Appropriate Consciousness: Alert Orientation: x4 Motor Activity: Other (no abnormal motor movements noted) Speech: Unremarkable Language: Adequate Fund of Knowledge: Adequate Attention and Concentration: Adequate Memory: Unremarkable (grossly intact on clinical exam) Mood: Sad, Oppositional, Irritable Affect: Sad, Other (restricted and consistent with stated mood) Thought Process & Associations: Intact, Logical, Goal directed, Linear Thought Content: Appropriate Hallucination Type: None Delusion Type: Paranoid Suicidal Ideation: No Suicidal Plan: No Suicidal Intention: No Homicidal Ideation: No Homicidal Plan: No Homicidal Intention: No Insight: Poor Judgment: Poor Assessment & Plan Problem List: (1) Adjustment disorder with depressed mood ICD Codes: F43.21 - Adjustment disorder with depressed mood (2) Methamphetamine abuse ICD Codes: F15.10 - Other stimulant abuse, uncomplicated (3) cluster b personality traits Assessment & Plan I agree that given mood lability and recent SI and HI with plan yesterday, pt meets criteria. 2nd opinion paper work completed Request HC Surrog/Guard Advoc?: No Libia Zapata MD Jul 14, 2017 12:18
--- NOTE | 2017-07-14 15:11 | HHI.PR ---
Subjective Remarks HAS SOME ABDOMINAL PAIN SOMETIMES HAS A BOWEL MOVEMENT MAYBE EVERY 2 TO 3 DAYS DOES NOT EAT MUCH HE STATES 07-12 PATIENT STATES HE IS HUNGRY NO OTHER COMPLAINTS DW PATIENT AND RN 07-13 NO NEW COMPLAINTS DW RN AND PATIENT WILL SIGN OFF 07-14 no new complaints WILL SIGN OFF Objective Vitals Vital Signs Date Time Temp Pulse Resp B/P (MAP) Pulse Ox O2 Delivery O2 Flow Rate FiO2 07/14/17 05:59 97.5 93 18 114/61 (78) 99 07/13/17 18:12 97.6 102 18 110/56 (74) 100 Result Diagram: 07/13/17 0721 Other Results Laboratory Tests Test 07/13/17 07:21 White Blood Count 4.2 TH/MM3 Red Blood Count 4.97 MIL/MM3 Hemoglobin 13.3 GM/DL Hematocrit 39.1 % Mean Corpuscular Volume 78.7 FL Mean Corpuscular Hemoglobin 26.8 PG Mean Corpuscular Hemoglobin Concent 34.1 % Red Cell Distribution Width 15.2 % Platelet Count 283 TH/MM3 Mean Platelet Volume 6.5 FL Neutrophils (%) (Auto) 36.9 % Lymphocytes (%) (Auto) 48.5 % Monocytes (%) (Auto) 9.1 % Eosinophils (%) (Auto) 5.0 % Basophils (%) (Auto) 0.5 % Neutrophils # (Auto) 1.5 TH/MM3 Lymphocytes # (Auto) 2.0 TH/MM3 Monocytes # (Auto) 0.4 TH/MM3 Eosinophils # (Auto) 0.2 TH/MM3 Basophils # (Auto) 0.0 TH/MM3 CBC Comment DIFF FINAL Differential Comment Imaging Last Impressions Abdomen X-Ray 07/10/17 0000 Signed Impressions: Service Date/Time: Monday, July 10, 2017 14:22 - CONCLUSION: Normal examination of the abdomen. Garrick Ellison MD Chest X-Ray 07/06/17 0000 Signed Impressions: Service Date/Time: Thursday, July 06, 2017 00:39 - CONCLUSION: 1. No acute cardiopulmonary disease. Oziel Lambert MD Abdomen/Pelvis CT 07/06/17 0000 Signed Impressions: Service Date/Time: Thursday, July 06, 2017 02:24 - CONCLUSION: 1. Findings of mild small bowel ileus in the left side of the abdomen. Oziel Lambert MD Objective Remarks GENERAL: AWAKE ALERT ORIENTED X3 TALKATIVE AND COOPERATIVE SKIN: Warm and dry. HEAD: Atraumatic. Normocephalic. EYES: Pupils equal and round. No scleral icterus. No injection or drainage. EOMI ENT: No nasal bleeding or discharge. Mucous membranes pink and moist. TONGUE MIDLINE NECK: Trachea midline. No JVD. SUPPLE CARDIOVASCULAR: Regular rate and rhythm. S1,S2 NO S3 OR S4 RESPIRATORY: No accessory muscle use. Clear to auscultation. Breath sounds equal bilaterally. GASTROINTESTINAL: Abdomen soft, non-tender, nondistended. Hepatic and splenic margins not palpable. MUSCULOSKELETAL: Extremities without clubbing, cyanosis, or edema. No obvious deformities. NEUROLOGICAL: Awake and alert. No obvious cranial nerve deficits. Motor grossly within normal limits. Five out of 5 muscle strength in the arms and legs. Normal speech. PSYCHIATRIC: INAppropriate mood and affect; insight and judgment normal. Procedures NONE Medications and IVs Current Medications Iohexol (Omnipaque 350 Inj) 70 ml STK-MED ONCE IVCONTRAST Last administered on 07/06/17 02:35; Start 07/06/17 at 02:35; Stop 07/06/17 at 02:36; Status DC Lorazepam (Ativan) 1 mg Q6H PRN PO MODERATE TO SEVERE ANXIETY Last administered on 07/13/17 12:02; Start 07/06/17 at 12:30 Lorazepam (Ativan Inj) 1 mg Q6H PRN IM MODERATE TO SEVERE ANXIETY; Start 07/06 at 12:30 Acetaminophen (Tylenol) 650 mg Q4H PRN PO Pain 1-5 or Temp >101F Last administered on 07/14/17 07:32; Start 07/06/17 at 12:30 Magnesium Hydroxide (Milk Of Magnesia Liq) 30 ml DAILY PRN PO Mild-moderate constipation; Start 07/06/17 at 12:30; Stop 07/11/17 at 15:49; Status DC Al Hydrox/Mg Hydrox/Simethicone (Mag-Al Plus Susp Liq) 30 ml Q6H PRN PO DYSPEPSIA; Start 07/06/17 at 12:30 Trazodone HCl (Desyrel) 50 mg HS PRN PO INSOMNIA Last administered on 21:05; Start 07/06/17 at 12:30; Stop 07/10/17 at 14:35; Status DC Hydroxyzine HCl (Atarax) 50 mg Q6H PRN PO ANXIETY Last administered on 13:54; Start 07/06/17 at 12:30 Pneumococcal Polyvalent Vaccine (Pneumovax-23 Inj) 25 mcg ONCE ONCE IM Last administered on 07/07/17 10:42; Start 07/07/17 at 10:00; Stop 07/07/17 at 10 :01; Status DC Abacavir Sulfate (Ziagen) 600 mg DAILY PO Last administered on 07/14/17 08:41 ; Start 07/07/17 at 09:00 Lamivudine (Epivir) 300 mg DAILY PO Last administered on 07/14/17 08:42; Start 07/07/17 at 09:00 Albuterol Sulfate (Proair Hfa Inh) 2 puff Q4H PRN INH shortness of breath/ wheezing; Start 07/06/17 at 19:00 Senna/Docusate Sodium (Ying-Colace) 2 tab ONCE ONCE PO Last administered on 12:06; Start 07/07/17 at 11:30; Stop 07/07/17 at 11:35; Status DC Cholecalciferol (Vitamin D3) 1,000 units DAILY PO Last administered on 08:42; Start 07/07/17 at 11:45 Florala Carbonate (Lithotabs) 300 mg BID PO Last administered on 07/10/17 20: 25; Start 07/09/17 at 21:00; Stop 07/11/17 at 09:07; Status DC Trazodone HCl (Desyrel) 100 mg HS PRN PO INSOMNIA Last administered on 20:21; Start 07/10/17 at 21:00 Quetiapine Fumarate (SEROquel) 50 mg DAILY PO Last administered on 07/12/17 08:12; Start 07/11/17 at 09:15; Stop 07/12/17 at 08:35; Status DC Quetiapine Fumarate (SEROquel) 100 mg HS PO Last administered on 07/12/17 21: 11; Start 07/11/17 at 21:00; Stop 07/13/17 at 09:30; Status DC Naloxone HCl (Narcan Inj) 0.4 mg UNSCH PRN IV PUSH SEE LABEL COMMENTS; Start 07/11/17 at 15:45 Senna/Docusate Sodium (Ying-Colace) 1 tab BID PO Last administered on 08:42; Start 07/11/17 at 21:00 Magnesium Hydroxide (Milk Of Magnesia Liq) 30 ml Q12H PRN PO Mild constipation ; Start 07/11/17 at 15:45 Sennosides (Senokot) 17.2 mg Q12H PRN PO Moderate constipation; Start at 15:45 Bisacodyl (Dulcolax Supp) 10 mg DAILY PRN RECTAL SEVERE CONSITIPATION; Start 07/11/17 at 15:45 Lactulose (Lactulose Liq) 30 ml DAILY PRN PO SEVERE CONSITIPATION; Start 07/11 at 15:45 Quetiapine Fumarate (SEROquel) 100 mg DAILY PO Last administered on 07/12/17 11:18; Start 07/12/17 at 09:00; Stop 07/13/17 at 09:30; Status DC Quetiapine Fumarate (SEROquel) 50 mg ONCE ONCE PO Last administered on 11:19; Start 07/12/17 at 09:00; Stop 07/12/17 at 09:01; Status DC Quetiapine Fumarate (SEROquel) 150 mg DAILY PO Last administered on 07/14/17 08:45; Start 07/14/17 at 09:00 Quetiapine Fumarate (SEROquel) 150 mg HS PO ; Start 07/13/17 at 21:00; Stop at 21:00; Status DC Miscellaneous (Pill Splitter) 1 ea UNSCH PRN OTHER SEE LABEL COMMENTS; Start 07/13/17 at 10:45 Quetiapine Fumarate (SEROquel) 150 mg Taper HS PO Last administered on 20:21; Start 07/13/17 at 21:00; Stop 07/25/17 at 20:59 Ibuprofen (Motrin) 800 mg Q8H PRN PO PAIN 6-10; Start 07/14/17 at 13:30; Stop 07/19/17 at 13:29 Urinary Catheter: No A/P Problem List: (1) HIV positive ICD Code: Z21 - Asymptomatic human immunodeficiency virus [HIV] infection status Plan: care plan discussed with ID team, follow up blood work, obtain old records continue HIV rx, follow up with outpatient MD (2) Tachycardia ICD Code: R00.0 - Tachycardia, unspecified Plan: asymptomatic, may be volume depleted PO hydration encouraged (3) Abdominal left lower quadrant tenderness ICD Code: R10.814 - Left lower quadrant abdominal tenderness Plan: HAS SOME PAIN ON AND OFF- ONLY HAS BM EVERY 2 TO 3 DAYS AT HOME MAYBE OVERLY SENSITIVE TO BOWEL DISTENTION CHRONIC CONSTIPATION (4) Vitamin D deficiency ICD Code: E55.9 - Vitamin D deficiency, unspecified Plan: likely due to poor diet and inadequate sun exposure add vit d Assessment and Plan 26-year-old man with Suicidal ideation Management per psychiatry Continue Faria act HIV positive CD4 count, hepatitis profile pending QuantiFERON TB test pending--NEGATIVE Continue with HAART therapy Appreciate input from infectious disease specialist Tachycardia-improving Monitor Abdominal pain Check abdominal x-ray- STABLE DVT prophylaxis: Encourage ambulation Discharge Planning MEDS FOR CONSTIPATION WILL SIGN OFF Problem Qualifiers (1) Abdominal left lower quadrant tenderness: Qualified Codes: R10.824 - Left lower quadrant rebound abdominal tenderness Francisco Adams DO Jul 14, 2017 15:11
[2017-07-14] MEDS: IBUPROFEN 800 MG TAB PO PRN (16:20)
[2017-07-14] MEDS: LORazepam 1 MG TAB PO PRN (17:23)
[2017-07-14 18:21] VITALS: BP 121/62; PULSE 83; RESP 18; TEMP 97.4; O2SAT 100
[2017-07-14 21:56] VITALS: BP 137/86; PULSE 111; RESP 18; O2SAT 99
[2017-07-15] MEDS: IBUPROFEN 800 MG TAB PO PRN ×2 (05:43→17:25)
[2017-07-15 05:54] VITALS: BP 109/65; PULSE 90; RESP 17; TEMP 97.7; O2SAT 100
[2017-07-15] MEDS: DOCUSATE SODIUM 50 MG/SENNA 8.6 MG TAB PO SCH ×2 (08:20→21:00)
[2017-07-15] MEDS: QUEtiapine FUMARATE 100 MG TAB PO SCH ×2 (08:21→21:00)
[2017-07-15] MEDS: DOLUTEGRAVIR SODIUM 50 MG TAB PO SCH (08:22)
[2017-07-15] MEDS: CHOLECALCIFEROL (VIT D3) 1000 UNIT TAB PO SCH (08:23)
[2017-07-15] MEDS: hydrOXYzine HCL 50 MG TAB PO PRN ×2 (08:23→18:24)
[2017-07-15] MEDS: ABACAVIR SULFATE 300 MG TAB PO SCH (09:00)
[2017-07-15 10:59] LABS: AUTOMATED NEUTROPHIL # 2.3 TH/MM3 (1.8-7.7); BASOPHIL % 0.3 % (0.0-2.0); EOSINOPHIL # 0.1 TH/MM3 (0-0.4); EOSINOPHIL % 2.8 % (0.0-4.0); HEMATOCRIT 38.6 % (39.0-51.0); HEMO FLAGS DIFF FINAL; LYMPH % 40.1 % (9.0-44.0); LYMPHOCYTE # 1.9 TH/MM3 (1.0-4.8); MEAN CORPUSCULAR HEMOGLOBIN 26.1 PG (27.0-34.0); MEAN CORPUSCULAR HGB CONC 33.1 % (32.0-36.0); MONO % 8.5 % (0.0-8.0); NEUT % 48.3 % (16.0-70.0); PLATELET COUNT 285 TH/MM3 (150-450); RED BLOOD COUNT 4.89 MIL/MM3 (4.50-5.90); RED CELL DISTRIBUTION WIDTH 15.2 % (11.6-17.2); WHITE BLOOD COUNT 4.8 TH/MM3 (4.0-11.0)
--- NOTE | 2017-07-15 11:51 | HHI.PYPN ---
Subjective Remarks Pt seen and discussed with staff. He remains dysphoric and depressed. He c/o of feelings of loneliness to RN. He has been spending more time in milieu. No aggression or agitation. He denies SI/HI Mental Status Examination Appearance: Appropriate Consciousness: Alert Orientation: x4 Motor Activity: Other (no abnormal motor movements noted) Speech: Unremarkable Language: Adequate Fund of Knowledge: Adequate Attention and Concentration: Adequate Memory: Unremarkable (grossly intact on clinical exam) Mood: Sad, Oppositional, Irritable Affect: Sad, Other (restricted and consistent with stated mood) Thought Process & Associations: Intact, Logical, Goal directed, Linear Thought Content: Appropriate Hallucination Type: None Delusion Type: None Suicidal Ideation: No Suicidal Plan: No Suicidal Intention: No Homicidal Ideation: No Homicidal Plan: No Homicidal Intention: No Insight: Poor Judgment: Poor Results Labs Test 07/15/17 10:21 White Blood Count 4.8 TH/MM3 Red Blood Count 4.89 MIL/MM3 Hemoglobin 12.8 GM/DL Hematocrit 38.6 % Mean Corpuscular Volume 79.0 FL Mean Corpuscular Hemoglobin 26.1 PG Mean Corpuscular Hemoglobin Concent 33.1 % Red Cell Distribution Width 15.2 % Platelet Count 285 TH/MM3 Mean Platelet Volume 6.4 FL Neutrophils (%) (Auto) 48.3 % Lymphocytes (%) (Auto) 40.1 % Monocytes (%) (Auto) 8.5 % Eosinophils (%) (Auto) 2.8 % Basophils (%) (Auto) 0.3 % Neutrophils # (Auto) 2.3 TH/MM3 Lymphocytes # (Auto) 1.9 TH/MM3 Monocytes # (Auto) 0.4 TH/MM3 Eosinophils # (Auto) 0.1 TH/MM3 Basophils # (Auto) 0.0 TH/MM3 CBC Comment DIFF FINAL Differential Comment Vitals/IOs Vital Signs Date Time Temp Pulse Resp B/P (MAP) Pulse Ox O2 Delivery O2 Flow Rate FiO2 07/15/17 05:54 97.7 90 17 109/65 (80) 100 Intake and Output 07/15/17 07/15/17 07/16/17 08:00 16:00 00:00 Intake Total 0 ml Balance 0 ml Assessment & Plan Problem List: (1) Adjustment disorder with depressed mood ICD Codes: F43.21 - Adjustment disorder with depressed mood (2) Methamphetamine abuse ICD Codes: F15.10 - Other stimulant abuse, uncomplicated (3) cluster b personality traits Assessment & Plan Continue current tx plan Estimated LOS: days Justification for Cont. Inpt. monitoring for safety Request HC Surrog/Guard Advoc?: Libia Jones MD Jul 15, 2017 11:51
[2017-07-15 15:54] VITALS: BP 128/79; PULSE 93; RESP 18; TEMP 94.7; O2SAT 97
[2017-07-16 06:10] VITALS: BP 107/55; PULSE 81; RESP 17; TEMP 97.4; O2SAT 100
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
[2017-07-16] MEDS: ABACAVIR SULFATE 300 MG TAB PO SCH (08:53)
[2017-07-16] MEDS: DOLUTEGRAVIR SODIUM 50 MG TAB PO SCH (08:53)
[2017-07-16] MEDS: QUEtiapine FUMARATE 100 MG TAB PO SCH ×2 (08:53→20:20)
[2017-07-16] MEDS: DOCUSATE SODIUM 50 MG/SENNA 8.6 MG TAB PO SCH ×2 (08:53→20:21)
[2017-07-16] MEDS: CHOLECALCIFEROL (VIT D3) 1000 UNIT TAB PO SCH (08:54)
[2017-07-16] MEDS: SERTRALINE HCL 50 MG TAB PO SCH (08:54)
[2017-07-16] MEDS: LORazepam 1 MG TAB PO PRN ×2 (09:15→18:37)
[2017-07-16] MEDS: IBUPROFEN 800 MG TAB PO PRN ×2 (09:29→20:20)
[2017-07-16] MEDS: ACETAMINOPHEN 325 MG TAB PO PRN (11:55)
[2017-07-16 18:00] VITALS: BP 111/59; PULSE 92; RESP 16; TEMP 97.4; O2SAT 99
[2017-07-17] MEDS: ACETAMINOPHEN 325 MG TAB PO PRN ×2 (03:00→15:15)
[2017-07-17 05:44] VITALS: BP 111/74; PULSE 93; RESP 16; TEMP 97.5; O2SAT 99
[2017-07-17] MEDS: ABACAVIR SULFATE 300 MG TAB PO SCH (08:33)
[2017-07-17] MEDS: DOLUTEGRAVIR SODIUM 50 MG TAB PO SCH (08:34)
[2017-07-17] MEDS: DOCUSATE SODIUM 50 MG/SENNA 8.6 MG TAB PO SCH ×2 (08:34→20:36)
[2017-07-17] MEDS: QUEtiapine FUMARATE 100 MG TAB PO SCH ×2 (08:34→20:36)
[2017-07-17] MEDS: SERTRALINE HCL 50 MG TAB PO SCH (08:34)
[2017-07-17] MEDS: CHOLECALCIFEROL (VIT D3) 1000 UNIT TAB PO SCH (08:34)
[2017-07-17] MEDS: IBUPROFEN 800 MG TAB PO PRN ×2 (08:40→16:48)
--- NOTE | 2017-07-17 11:25 | PD.TTN ---
Patient Problems 1. Discharge planning 2. Medication compliance 3. Knowledge deficit 4. Lack of coping skills Progress Toward Goals Provider Present: Dr. Dominic Solano Provider Input: Pt medication regiment has been adjusted including addition of [place]. 07/13- A petition has been started on pt due to his behavior and threats of violence to peers. 07/17- Pt has been behaviorally acting out but is not presenting any other issues on the unit at this time. Medication regiment will be continue to be evaluated. Nurse(s) Present: Khadar Rebolledo RN Nurse(s) Input: Pt affect appears to be improving, he denies any suicidal thoughts, denies any hallucinations, is compliant with medication regiment and has been no behavioral issue on unit. 07/17- Kimberlee Carias RN Pt appears compliant with medication regiment, has been no behavioral issue on unit and presents with no overt symptoms. Psychiatric Counselors Present: Douglas Knapp [facility] Psych Therapist Input: Pt reports improvement in mood as well as suicidal thoughts. He discusses the impact of his substance abuse on his life and remains committed to going to inpatient treatment. Pt appears with improving insight into condition and need for care. He denied any further suicidal thoughts and appears to be implementing some coping skills to managing mood disturbance. No noted agitation or aggression. He is compliant with medication regiment and appears to accept the benefit of this for treatment of his mental illness. 07/13- Pt appears agitated, labile, guarded, discharge focused and organized. Pt is struggling as he was upset with a peer on the unit and made threats against him. Pt appears with poor coping and emotional regulation skills. There appears to be an element of possible hesistation to go to the inpatient substance abuse rehab that is waiting for him as he was to be discharged there today but cannot due to threats and behavior. He does not accept responsibility for his behavior. He is compliant with medication regiment and feels that it is not helping at night. 07/17- Pt continues to appear with some behavioral issues including apparent sabotaging of his inpatient substance abuse treatment program. Pt presents with limited insight into condition and need for care. Pt appears compliant with medication regiment. He struggles with coping and emotional regulation skills as evidenced by mood lability and issues with peers on unit when he becomes upset. Group Spec/RT/OT/CAMPOS Present: Annabella Lundy, VIKRAM Group Spec/RT/OT/CAMPOS Input: Pt has not participated in groups since moving to the 2700 unit yesterday. 07/13- Pt is visible in the [place]. Pt will participate in group activities with encouragement. 07/17- Pt attends select groups and is often withdrawn. Discharge Plan Pt will now be referred to [facility] as he states he no longer wishes to go to his inpatient substance abuse treatment program. Documentation Scribe: Douglas Knapp [facility] Douglas Knapp [facility] Jul 17, 2017 11:25
[2017-07-17] MEDS: LORazepam 1 MG TAB PO PRN (12:13)
--- NOTE | 2017-07-17 14:45 | HHI.PYPN ---
Subjective Remarks Patient seen and examined with nurse. Chart reviewed. Case discussed with nursing staff and in treatment team. Per nursing staff, no behavioral issues noted overnight. On my examination today, the patient remains dramatic with cluster B personality traits. He does say that he feels calmer with the addition of Zoloft. He denies any suicidal or homicidal ideation. He reports that he is somewhat anxious about his discharge plan. In this context he shares that he hearing a voice telling him to "run away." No CAH to hurt self/ others. No other hallucinatory material. In context, this experience seems to be a manifestation of anxiety in the setting of personality style, not jose elias eva psychosis. No delusional material. Denies side effects from medications, and the patient reports that he is satisfied with his current psychotropics. No physical complaints. Review of Systems Except as stated in HPI: all other systems reviewed are Neg Mental Status Examination Appearance: Appropriate Consciousness: Alert Orientation: x4 Motor Activity: Other (no motoric abnormalities appreciated) Speech: Unremarkable Language: Adequate Fund of Knowledge: Adequate Attention and Concentration: Adequate Memory: Unremarkable Mood: Other (calmer) Affect: Other (remains dramatic) Thought Process & Associations: Intact, Logical, Goal directed, Linear Thought Content: Appropriate Hallucination Type: Auditory (see above. No CAH to hurt self/others.) Delusion Type: None Suicidal Ideation: No Suicidal Plan: No Suicidal Intention: No Homicidal Ideation: No Homicidal Plan: No Homicidal Intention: No Insight: Poor Judgment: Poor Results Labs Labs reviewed. No new labs. Vitals/IOs Vital Signs Date Time Temp Pulse Resp B/P (MAP) Pulse Ox O2 Delivery O2 Flow Rate FiO2 07/17/17 05:44 97.5 93 16 111/74 (86) 99 Assessment & Plan Problem List: (1) Cluster B personality disorder ICD Codes: F60.9 - Personality disorder, unspecified (2) Methamphetamine abuse ICD Codes: F15.10 - Other stimulant abuse, uncomplicated Assessment & Plan Continue Zoloft and Seroquel as ordered. Continue to monitor on the inpatient unit. Continue other medications and care as ordered. Justification for Cont. Inpt. Final discharge planning. Discharge Planning Case discussed with counselor. Patient is requesting placement, but counselor reports that the patient's HIV status may make this difficult or perhaps impossible in our area as facilities are reportedly reluctant to accept patients with this problem. Counselor reports that he will explore possible sober living placement and other placement options. I will retain the patient on the inpatient unit for an additional hospital day to try to arrange for some sort of placement, although I think the medical indication for ongoing psychiatric hospitalization is becoming tenuous. Request HC Surrog/Guard Advoc?: No Oziel Solano MD Jul 17, 2017 14:45
[2017-07-17 18:02] VITALS: BP 119/74; PULSE 93; RESP 18; TEMP 97.8; O2SAT 98
[2017-07-18 06:05] VITALS: BP 125/65; PULSE 83; RESP 18; TEMP 97.7
[2017-07-18] MEDS: IBUPROFEN 800 MG TAB PO PRN ×2 (06:06→15:18)
[2017-07-18] MEDS: SERTRALINE HCL 50 MG TAB PO SCH (08:53)
[2017-07-18] MEDS: ABACAVIR SULFATE 300 MG TAB PO SCH (08:54)
[2017-07-18] MEDS: CHOLECALCIFEROL (VIT D3) 1000 UNIT TAB PO SCH (08:54)
[2017-07-18] MEDS: DOLUTEGRAVIR SODIUM 50 MG TAB PO SCH (08:54)
[2017-07-18] MEDS: QUEtiapine FUMARATE 100 MG TAB PO SCH ×2 (08:54→21:25)
[2017-07-18] MEDS: DOCUSATE SODIUM 50 MG/SENNA 8.6 MG TAB PO SCH ×2 (08:54→21:24)
[2017-07-18] MEDS: PADIMATE (CHAPSTICK) 4.5 GM TUBE TOPICAL PRN ×2 (09:00→17:30)
--- NOTE | 2017-07-18 11:03 | HHI.PYPN ---
Subjective Remarks Patient seen and examined with nurse. Chart reviewed. Case discussed with nursing staff. No behavioral issues overnight. Case discussed with counselor: patient can go to sober living tomorrow. He also would have an [facility] rehab bed on Sunday. On my exam, patient reports he would like to go to sober living. He also is considering [facility]. Affect is brighter than in previous interactions. He seems hopeful and future oriented. He denies any SI/HI. Denies any AVH. Denies side effects from medications. No physical complaints. Review of Systems Except as stated in HPI: all other systems reviewed are Neg Mental Status Examination Appearance: Appropriate Consciousness: Alert Orientation: x4 Motor Activity: Other (no abnormal motor movements noted) Speech: Unremarkable Language: Adequate Fund of Knowledge: Adequate Attention and Concentration: Adequate Memory: Unremarkable Mood: Appropriate Affect: Appropriate Thought Process & Associations: Intact, Logical, Goal directed, Linear Thought Content: Appropriate Hallucination Type: None Delusion Type: None Suicidal Ideation: No Suicidal Plan: No Suicidal Intention: No Homicidal Ideation: No Homicidal Plan: No Homicidal Intention: No Insight: Fair Judgment: Adequate (fair at best) Results Labs Labs reviewed. No new labs. Vitals/IOs Vital Signs Date Time Temp Pulse Resp B/P (MAP) Pulse Ox O2 Delivery O2 Flow Rate FiO2 07/18/17 06:05 97.7 83 18 125/65 (85) 07/17/17 18:02 98 Assessment & Plan Problem List: (1) Cluster B personality disorder ICD Codes: F60.9 - Personality disorder, unspecified (2) Methamphetamine abuse ICD Codes: F15.10 - Other stimulant abuse, uncomplicated Assessment & Plan Continue Seroquel and Zoloft as ordered. Continue to monitor on the inpatient unit. Continue other medications and care as ordered. Justification for Cont. Inpt. Final discharge planning Discharge Planning Anticipate discharged to sober living tomorrow. Request HC Surrog/Guard Advoc?: No Oziel Solano MD Jul 18, 2017 11:03
[2017-07-18] MEDS: hydrOXYzine HCL 50 MG TAB PO PRN ×2 (11:48→18:20)
[2017-07-18] MEDS ORDERED: ZOLO50TA PO (13:31)
[2017-07-18] MEDS ORDERED: PERI PO (13:31)
[2017-07-18] MEDS ORDERED: ABAC1TAB3 PO (13:31)
[2017-07-18] MEDS ORDERED: QUET1TAB8 PO (13:31)
[2017-07-18] MEDS ORDERED: CHOL1000 PO (13:31)
[2017-07-18 18:20] VITALS: BP 121/68; PULSE 83; RESP 18; TEMP 97.2; O2SAT 100
[2017-07-18] MEDS: traZODone HCL 100 MG TAB PO PRN (21:24)
[2017-07-19 05:45] VITALS: BP 110/62; PULSE 81; RESP 16; TEMP 97.8; O2SAT 100
[2017-07-19] MEDS: IBUPROFEN 800 MG TAB PO PRN (06:21)
--- NOTE | 2017-07-19 08:18 | HHI.PYPN ---
Subjective Remarks I am covering for Dr. Solano today Patient seen in [place] with nurse know what , chart reviewed. It appears resistant confusion about appropriate placement for this young man. He now states wants to go home with his mother today and anticipating going into rehabilitation program [facility]. However considering this patient's past history track record with substance abuse I question that placement. Patient willing to continue inpatient hospitalization overnight and discuss this with Dr. Solano tomorrow Review of Systems Except as stated in HPI: all other systems reviewed are Neg Mental Status Examination Appearance: Appropriate Consciousness: Alert Orientation: x4 Motor Activity: Other (no abnormal motor movements noted) Speech: Unremarkable Language: Adequate Fund of Knowledge: Adequate Attention and Concentration: Adequate Memory: Unremarkable Mood: Appropriate Affect: Appropriate Thought Process & Associations: Intact, Logical, Goal directed, Linear Thought Content: Appropriate Hallucination Type: None Delusion Type: None Suicidal Ideation: No Suicidal Plan: No Suicidal Intention: No Homicidal Ideation: No Homicidal Plan: No Homicidal Intention: No Insight: Fair Judgment: Adequate (fair at best) Results Vitals/IOs Vital Signs Date Time Temp Pulse Resp B/P (MAP) Pulse Ox O2 Delivery O2 Flow Rate FiO2 07/19/17 05:45 97.8 81 16 110/62 (78) 100 Assessment & Plan Problem List: (1) Cluster B personality disorder ICD Codes: F60.9 - Personality disorder, unspecified (2) Methamphetamine abuse ICD Codes: F15.10 - Other stimulant abuse, uncomplicated Assessment & Plan Estimated LOS: days patient calm cooperative with me showing some insight into his need to remain year mother 2448 hrs. to address placement confusion. Justification for Cont. Inpt. This time patient may decompensate or placed in an appropriate level of care Discharge Planning Need to resolve placement confusion perhaps tomorrow with Dr. Solano and treatment team will be available Request HC Surrog/Guard Advoc?: No Garrick Fagan MD Jul 19, 2017 08:18
[2017-07-19] MEDS: QUEtiapine FUMARATE 100 MG TAB PO SCH ×2 (08:22→20:15)
[2017-07-19] MEDS: DOCUSATE SODIUM 50 MG/SENNA 8.6 MG TAB PO SCH ×2 (08:22→20:15)
[2017-07-19] MEDS: DOLUTEGRAVIR SODIUM 50 MG TAB PO SCH (08:23)
[2017-07-19] MEDS: CHOLECALCIFEROL (VIT D3) 1000 UNIT TAB PO SCH (08:23)
[2017-07-19] MEDS: ABACAVIR SULFATE 300 MG TAB PO SCH (08:24)
[2017-07-19] MEDS: SERTRALINE HCL 50 MG TAB PO SCH (08:24)
[2017-07-19] MEDS: ACETAMINOPHEN 325 MG TAB PO PRN (11:00)
[2017-07-19] MEDS: hydrOXYzine HCL 50 MG TAB PO PRN ×2 (13:49→20:16)
[2017-07-19] MEDS ORDERED: IBUPROFEN 600 MG TAB PO PRN (14:30)
[2017-07-19] MEDS: IBUPROFEN 600 MG TAB PO PRN ×2 (17:17→17:20)
[2017-07-19 17:19] VITALS: BP 118/70; PULSE 79; RESP 18; TEMP 97.4; O2SAT 97
[2017-07-19] MEDS: PADIMATE (CHAPSTICK) 4.5 GM TUBE TOPICAL PRN (20:14)
[2017-07-19] MEDS: traZODone HCL 100 MG TAB PO PRN (20:16)
[2017-07-20 06:29] VITALS: BP 117/56; PULSE 74; RESP 16; TEMP 98.7; O2SAT 100
[2017-07-20] MEDS: IBUPROFEN 600 MG TAB PO PRN ×2 (07:14→17:34)
[2017-07-20] MEDS: DOLUTEGRAVIR SODIUM 50 MG TAB PO SCH (08:37)
[2017-07-20] MEDS: CHOLECALCIFEROL (VIT D3) 1000 UNIT TAB PO SCH (08:37)
[2017-07-20] MEDS: ABACAVIR SULFATE 300 MG TAB PO SCH (08:37)
[2017-07-20] MEDS: QUEtiapine FUMARATE 100 MG TAB PO SCH ×2 (08:37→22:09)
[2017-07-20] MEDS: DOCUSATE SODIUM 50 MG/SENNA 8.6 MG TAB PO SCH ×2 (08:37→21:00)
[2017-07-20] MEDS: SERTRALINE HCL 50 MG TAB PO SCH (08:37)
--- NOTE | 2017-07-20 10:22 | PD.TTN ---
Patient Problems 1. Discharge planning 2. Medication compliance 3. Knowledge deficit 4. Lack of coping skills Progress Toward Goals Provider Present: Dr. Dominic Solano Provider Input: Pt medication regiment has been adjusted including addition of [place]. 07/13- A petition has been started on pt due to his behavior and threats of violence to peers. 07/17- Pt has been behaviorally acting out but is not presenting any other issues on the unit at this time. Medication regiment will be continue to be evaluated. 07/20 patient is intended to discharge and go to rehab, unaware why patient did not leave yesterday Nurse(s) Present: Khadar Rebolledo, [place] Nurse(s) Input: Pt affect appears to be improving, he denies any suicidal thoughts, denies any hallucinations, is compliant with medication regiment and has been no behavioral issue on unit. 07/17- Kimberlee Carias RN Pt appears compliant with medication regiment, has been no behavioral issue on unit and presents with no overt symptoms. 07/20 pt is well overall and compliant - he could not go yesterday because [facility] did not take him Psychiatric Counselors Present: Douglas Knapp, [facility], Cecy Ortiz, [facility] Psych Therapist Input: Pt reports improvement in mood as well as suicidal thoughts. He discusses the impact of his substance abuse on his life and remains committed to going to inpatient treatment. Pt appears with improving insight into condition and need for care. He denied any further suicidal thoughts and appears to be implementing some coping skills to managing mood disturbance. No noted agitation or aggression. He is compliant with medication regiment and appears to accept the benefit of this for treatment of his mental illness. 07/13- Pt appears agitated, labile, guarded, discharge focused and organized. Pt is struggling as he was upset with a peer on the unit and made threats against him. Pt appears with poor coping and emotional regulation skills. There appears to be an element of possible hesistation to go to the inpatient substance abuse rehab that is waiting for him as he was to be discharged there today but cannot due to threats and behavior. He does not accept responsibility for his behavior. He is compliant with medication regiment and feels that it is not helping at night. 07/17- Pt continues to appear with some behavioral issues including apparent sabotaging of his inpatient substance abuse treatment program. Pt presents with limited insight into condition and need for care. Pt appears compliant with medication regiment. He struggles with coping and emotional regulation skills as evidenced by mood lability and issues with peers on unit when he becomes upset. 07/20 patient is aware he can go to [facility] Sunday and is motivated to work towards sobriety, he is still working on establishing stable living but will go to [facility] this coming Sunday and is trying to call for prison Group Spec/RT/OT/CAMPOS Present: Annabella Lundy, [facility] Group Spec/RT/OT/CAMPOS Input: Pt has not participated in groups since moving to the [facility] unit yesterday. 07/13- Pt is visible in the [place]. Pt will participate in group activities with encouragement. 07/17- Pt attends select groups and is often withdrawn. Discharge Plan [facility] (substance abuse, bed available Sunday ) Pt will now be referred to [facility] as he states he no longer wishes to go to his inpatient substance abuse treatment program. Documentation Scribe: Douglas Knapp, Cecy Tolliver LCSW Jul 20, 2017 10:22
[2017-07-20] MEDS: LORazepam 1 MG TAB PO PRN (11:43)
--- NOTE | 2017-07-20 13:44 | HHI.PYPN ---
Subjective Remarks Patient seen and examined with nurse. Chart reviewed. Case discussed with nursing staff. Case discussed with counselor in treatment team. Sober living placement apparently fell through but patient still does have [facility] rehab bed Sunday, and he remains agreeable to going there today. On my exam, patient remains a little anxious and dysphoric, mostly related to uncertainty in his housing situation between now and Sunday. No SI/HI. He is open to the idea of a discharge today but agrees he would be at high risk for relapse between now and Sunday. Denies side effects from medications. No physical complaints. Review of Systems Except as stated in HPI: all other systems reviewed are Neg Mental Status Examination Appearance: Appropriate Consciousness: Alert Orientation: x4 Motor Activity: Other (no motoric abnormalities appreciated) Speech: Unremarkable Language: Adequate Fund of Knowledge: Adequate Attention and Concentration: Adequate Memory: Unremarkable Mood: Appropriate Affect: Appropriate Thought Process & Associations: Intact, Logical, Goal directed, Linear Thought Content: Appropriate Hallucination Type: None Delusion Type: None Suicidal Ideation: No Suicidal Plan: No Suicidal Intention: No Homicidal Ideation: No Homicidal Plan: No Homicidal Intention: No Insight: Fair Judgment: Adequate (fair at best) Results Labs Labs reviewed. No new labs. Vitals/IOs Vital Signs Date Time Temp Pulse Resp B/P (MAP) Pulse Ox O2 Delivery O2 Flow Rate FiO2 07/20/17 06:29 98.7 74 16 117/56 (76) 100 Assessment & Plan Problem List: (1) Cluster B personality disorder ICD Codes: F60.9 - Personality disorder, unspecified (2) Methamphetamine abuse ICD Codes: F15.10 - Other stimulant abuse, uncomplicated Assessment & Plan Titrate Zoloft to 50 mg daily to target dysphoria/anxiety. Patient is agreeable to this med change. Continue to monitor on the inpatient unit. Continue other medications and care as ordered. Justification for Cont. Inpt. Med change. Discharge Planning Discharge to [facility] Sunday. Request HC Surrog/Guard Advoc?: No Oziel Solano MD Jul 20, 2017 13:44
[2017-07-21 06:28] VITALS: BP 113/59; PULSE 80; RESP 18; TEMP 97.7; O2SAT 98
[2017-07-21] MEDS: SERTRALINE HCL 50 MG TAB PO SCH (09:07)
[2017-07-21] MEDS: ABACAVIR SULFATE 300 MG TAB PO SCH (09:08)
[2017-07-21] MEDS: DOCUSATE SODIUM 50 MG/SENNA 8.6 MG TAB PO SCH ×2 (09:08→20:55)
[2017-07-21] MEDS: CHOLECALCIFEROL (VIT D3) 1000 UNIT TAB PO SCH (09:08)
[2017-07-21] MEDS: QUEtiapine FUMARATE 100 MG TAB PO SCH ×2 (09:08→20:55)
[2017-07-21] MEDS: DOLUTEGRAVIR SODIUM 50 MG TAB PO SCH (09:08)
--- NOTE | 2017-07-21 12:41 | HHI.PYPN ---
Subjective Remarks Patient was seen and case discussed with nursing. Patient appears improved to her last meeting 2 weeks ago. Says his suicidal or homicidal ideation have resolved. Denies any intent or plan. Behaving well on the unit. No aggression or attention seeking behavior. Compliant with his medications and tolerating it well. Denies any auditory or visual hallucinations. Looking forward to discharge in a couple days Mental Status Examination Appearance: Appropriate Consciousness: Alert Orientation: x4 Motor Activity: Other (no motoric abnormalities appreciated) Speech: Unremarkable Language: Adequate Fund of Knowledge: Adequate Attention and Concentration: Adequate Memory: Unremarkable Mood: Appropriate Affect: Appropriate Thought Process & Associations: Intact, Logical, Goal directed, Linear Thought Content: Appropriate Hallucination Type: None Delusion Type: None Suicidal Ideation: No Suicidal Plan: No Suicidal Intention: No Homicidal Ideation: No Homicidal Plan: No Homicidal Intention: No Insight: Fair Judgment: Adequate (fair at best) Results Vitals/IOs Vital Signs Date Time Temp Pulse Resp B/P (MAP) Pulse Ox O2 Delivery O2 Flow Rate FiO2 07/21/17 06:28 97.7 80 18 113/59 (77) 98 Intake and Output 07/21/17 07/21/17 07/22/17 08:00 16:00 00:00 Intake Total 360 ml Balance 360 ml Assessment & Plan Problem List: (1) Cluster B personality disorder ICD Codes: F60.9 - Personality disorder, unspecified (2) Methamphetamine abuse ICD Codes: F15.10 - Other stimulant abuse, uncomplicated Assessment & Plan Continue current treatment plan Justification for Cont. Inpt. Patient would decompensate in a less restrictive setting Request HC Surrog/Guard Advoc?: No Henok Saleh DO Jul 21, 2017 12:41
[2017-07-21] MEDS: IBUPROFEN 600 MG TAB PO PRN (13:10)
[2017-07-21] MEDS: hydrOXYzine HCL 50 MG TAB PO PRN ×2 (16:09→21:31)
[2017-07-21] MEDS: ACETAMINOPHEN 325 MG TAB PO PRN (17:25)
[2017-07-21 18:40] VITALS: BP 110/66; PULSE 88; RESP 17; TEMP 98.6; O2SAT 100
[2017-07-21] MEDS: traZODone HCL 100 MG TAB PO PRN (20:55)
[2017-07-22 05:52] VITALS: BP 107/66; PULSE 99; RESP 17; TEMP 97.4; O2SAT 99
[2017-07-22] MEDS: ABACAVIR SULFATE 300 MG TAB PO SCH (08:52)
[2017-07-22] MEDS: DOLUTEGRAVIR SODIUM 50 MG TAB PO SCH (08:53)
[2017-07-22] MEDS: IBUPROFEN 600 MG TAB PO PRN ×2 (08:53→20:15)
[2017-07-22] MEDS: DOCUSATE SODIUM 50 MG/SENNA 8.6 MG TAB PO SCH ×2 (08:53→20:15)
[2017-07-22] MEDS: SERTRALINE HCL 50 MG TAB PO SCH (08:54)
[2017-07-22] MEDS: QUEtiapine FUMARATE 100 MG TAB PO SCH ×2 (08:54→20:15)
[2017-07-22] MEDS: CHOLECALCIFEROL (VIT D3) 1000 UNIT TAB PO SCH (09:05)
[2017-07-22] MEDS: PADIMATE (CHAPSTICK) 4.5 GM TUBE TOPICAL PRN ×2 (10:12→17:54)
[2017-07-22] MEDS: hydrOXYzine HCL 50 MG TAB PO PRN (13:41)
[2017-07-22] MEDS: ALUMINUM/MAGNESIUM/SIMETH 30 ML CUP PO PRN (14:21)
--- NOTE | 2017-07-22 14:32 | HHI.PYPN ---
Subjective Remarks Patient was seen and case discussed with nursing. Patient was feeling "anxious this morning." He received Atarax which helped. Per nursing is pleasant and behaving well. Seeing social on the unit. Has anxiety about the future. No longer has suicidal or homicidal ideation towards his friends. Patient says he is not sleeping well Mental Status Examination Appearance: Appropriate Consciousness: Alert Orientation: x4 Motor Activity: Other (no motoric abnormalities appreciated) Speech: Unremarkable Language: Adequate Fund of Knowledge: Adequate Attention and Concentration: Adequate Memory: Unremarkable Mood: Appropriate Affect: Appropriate Thought Process & Associations: Intact, Logical, Goal directed, Linear Thought Content: Appropriate Hallucination Type: None Delusion Type: None Suicidal Ideation: No Suicidal Plan: No Suicidal Intention: No Homicidal Ideation: No Homicidal Plan: No Homicidal Intention: No Insight: Fair Judgment: Adequate (fair at best) Results Vitals/IOs Vital Signs Date Time Temp Pulse Resp B/P (MAP) Pulse Ox O2 Delivery O2 Flow Rate FiO2 07/22/17 05:52 97.4 99 17 107/66 (80) 99 Assessment & Plan Problem List: (1) Cluster B personality disorder ICD Codes: F60.9 - Personality disorder, unspecified (2) Methamphetamine abuse ICD Codes: F15.10 - Other stimulant abuse, uncomplicated Assessment & Plan Continue Seroquel taper as ordered Justification for Cont. Inpt. Patient would decompensate in a less restrictive setting Request HC Surrog/Guard Advoc?: No Henok Saleh DO Jul 22, 2017 14:32
[2017-07-22 17:18] VITALS: BP 120/57; PULSE 75; RESP 16; TEMP 97.2; O2SAT 96
[2017-07-22] MEDS: traZODone HCL 100 MG TAB PO PRN (20:15)
[2017-07-23 05:56] VITALS: BP 106/53; PULSE 78; RESP 17; TEMP 97.7; O2SAT 100
[2017-07-23] MEDS: IBUPROFEN 600 MG TAB PO PRN (06:40)
[2017-07-23] MEDS: QUEtiapine FUMARATE 100 MG TAB PO SCH (08:11)
[2017-07-23] MEDS: ABACAVIR SULFATE 300 MG TAB PO SCH (08:12)
[2017-07-23] MEDS: DOCUSATE SODIUM 50 MG/SENNA 8.6 MG TAB PO SCH (08:12)
[2017-07-23] MEDS: DOLUTEGRAVIR SODIUM 50 MG TAB PO SCH (08:12)
[2017-07-23] MEDS: CHOLECALCIFEROL (VIT D3) 1000 UNIT TAB PO SCH (08:12)
[2017-07-23] MEDS: SERTRALINE HCL 50 MG TAB PO SCH (08:13)
[2017-07-23] MEDS: ALUMINUM/MAGNESIUM/SIMETH 30 ML CUP PO PRN (08:53)
[2017-07-23] MEDS ORDERED: ZOLO50TA PO (10:02)
--- NOTE | 2017-07-23 10:03 | HHI.DS ---
Psychiatry Discharge Summary Inpatient Psychiatric care?: Yes Advance Directive: No Reason Not Provided: Due to Patient Condition Mental Health AdvanceDirective: No Health Care Proxy: No Admission Admission Date Jul 06, 2017 at 12:31 Admission Diagnosis: (1) Adjustment disorder with depressed mood ICD Code: F43.21 - Adjustment disorder with depressed mood Brief History 26-year-old male, HIV positive, presented to the emergency department voluntarily with thoughts of homicidal ideation and suicidal ideation. Patient has been experiencing these thoughts of self-harm and to harm others intermittently over the last several weeks. He has also been self-medicating his depressive complaints with illicit drugs. Although he has an appointment with [facility] next Sunday to undergo detox and rehabilitation. [place] Due to these stressors, the patient describes current suicidal thinking with plan. He has attempted to hang himself in the past. He reports he could overdose on his medicine or figure out other ways to harm himself or others. Furthermore, the patient describes multiple symptoms of depression including depressed mood, anhedonia, diminished energy, insomnia, low self-esteem, feelings of hopelessness and helplessness, appetite loss, anxiety and diminished concentration. His toxicology screen is positive for amphetamines but he admitted this without the need for testing. Tobacco Use In Past 30 Days: No Tobacco Past 30 Days Alcohol Use: Never Hospital Course Patient was admitted to a locked, inpatient psychiatric unit. A general medical consultation was obtained. An infectious disease consultation was obtained. Appropriate precautions were in place throughout patient's hospital stay. Patient was seen and examined daily on the unit by psychiatry and also visited by counselor. Psychotropic medications were adjusted. Patient had improvement in presenting psychiatric symptomatology during the course of his hospital stay. With the benefit of observation, it became clear that the patient suffers from a cluster B personality disorder with chiefly borderline features. He acted out from time to time in the context of this personality disorder on the unit, but there was no evidence of concerted suicidality or homicidality on the inpatient unit, and the patient remained in behavioral control for the 24 hours prior to discharge. It is also felt that some of his acting out was in service of avoiding entry into chemical dependency treatment program. On the day of discharge: Patient seen and examined with nurse. Chart reviewed. Case discussed with nursing staff. No behavioral issues noted overnight. Case discussed with counselor. Patient may enter into the [facility] chemical dependency rehabilitation treatment program this afternoon. On my examination today, the patient is in good spirits. He is agreeable to going into chemical dependency rehabilitation today. He denies any suicidal or homicidal ideation, intent or plan on direct questioning and contracts for safety. We processed his episode of head banging over the weekend, and the patient notes that this was brought on by his realization that none of his family has visited him on the unit save a sibling. We discuss pursuing outpatient psychotherapy to develop more adaptive coping skills, and patient is agreeable to this. No depressive or hypomanic/manic symptoms elicited. No evidence of impairment in reality construction. No audiovisual hallucinations. No delusional material elicited. He denies side effects from medications and feels like they are helping. He notes that they make him feel "more focused and less bitter." No physical complaints. Suicide and violence risk assessment on discharge both suggest lower imminent risk. Substance use and cluster B personality style both confer chronic risk, but these risk factors would not be ameliorated by a longer inpatient psychiatric hospital stay. He would benefit from chemical dependency treatment, and the plan is for transfer to chemical dependency treatment facility today. His level of function is adequate for outpatient care. Patient will be discharged today to chemical dependency treatment facility with psychiatric follow-up as arranged by counselor. Patient is also to follow-up with primary care and with infectious disease. I have counseled the patient regarding warning signs for need to return to the psychiatric emergency room as part of the general safety plan. Results Blood Pressure 106 / 53 Vital Signs Date Time Temp Pulse Resp B/P (MAP) Pulse Ox O2 Delivery O2 Flow Rate FiO2 07/23/17 05:56 97.7 78 17 106/53 (70) 100 Laboratory Results Test 07/07/17 07:05 Cholesterol Level 159 MG/DL (120-200) HDL Cholesterol 62.2 MG/DL (40.0-60.0) Hemoglobin A1c 5.7 % (4.3-6.0) LDL Cholesterol 79 MG/DL (0-99) Triglycerides Level 90 MG/DL (42-150) Summary of Procedures None done Imaging Last Impressions Abdomen X-Ray 07/10/17 0000 Signed Impressions: Service Date/Time: Monday, July 10, 2017 14:22 - CONCLUSION: Normal examination of the abdomen. Garrick Ellison MD Chest X-Ray 07/06/17 0000 Signed Impressions: Service Date/Time: Thursday, July 06, 2017 00:39 - CONCLUSION: 1. No acute cardiopulmonary disease. Oziel Lambert MD Abdomen/Pelvis CT 07/06/17 0000 Signed Impressions: Service Date/Time: Thursday, July 06, 2017 02:24 - CONCLUSION: 1. Findings of mild small bowel ileus in the left side of the abdomen. Oziel Lambert MD Pending results at discharge: No Medications # of Antipsychotic meds at D/C: 1 Approp Antipsych med options 1 - Minimum of three failed multiple trials of monotherapy. 2 - Documented plan to taper to monotherapy due to previous use of multiple meds OR cross-taper in progress at D/C. 3 - Documentation of augmentation of Clozapine. 4 - Justification other than those listed in allowable values 1-3, document here : Discharge Discharge Date: Jul 23, 2017 Discharge Diagnosis: (1) Cluster B personality disorder Diagnosis: Principal ICD Code: F60.9 - Personality disorder, unspecified (2) Methamphetamine abuse Diagnosis: Secondary ICD Code: F15.10 - Other stimulant abuse, uncomplicated Pt Condition on Discharge: Stable Discharge Disposition: Trnsfr to Other Facility Discharge Instructions Diet Instructions: As Tolerated, No Restrictions Activities you can perform: Weight Bearing as Rhina Scheduled Appointment: as per counselor's notes New Orders: CBC NO DIFF - 1 Week VITAMIN D,25-HYDROXY - 2 Months New Medications: Cholecalciferol (Gnp Vitamin D3 Extra Stre) 1,000 Unit Tab 1000 UNITS PO DAILY for Vitamin D for 15 Days, TAB 1 Refill Quetiapine (Quetiapine) 100 Mg Tab 100 MG PO DIRECTED for Mental Health for 15 Days, TAB 1 Refill 150mg PO qAM and 300mg PO qHS. Sennosides-Docusate Sodium (Gnp Senna Plus 8.6-50 mg) 8.6 Mg-50 Mg Tab 1 TAB PO BID for Constipation for 15 Days, #30 TAB 1 Refill Sertraline (Zoloft) 50 Mg Tab 50 MG PO DAILY for Mental Health for 15 Days, #15 TAB 1 Refill Continued Medications: Opezbjvc-Aljkicaonlxj-Jmwtaqewjd (Triumeq) 600-50-300 Mg Tab 1 TAB PO DAILY for Mgmt Viral Infection for 15 Days, #15 TAB 1 Refill (This prescription has been renewed) Hazardous agent; use appropriate precautions for handling & disposal. Discontinued Medications: Aripiprazole (Abilify) 20 Mg Tab 20 MG PO DAILY, #30 TAB 0 Refills Benztropine (Benztropine) 0.5 Mg Tab 0.5 MG PO BID, #60 TAB 0 Refills Fluconazole (Fluconazole) 200 Mg Tab 200 MG PO DAILY for Infection, TAB 0 Refills Haloperidol (Haloperidol) 5 Mg Tab 5 MG PO HS, TAB 0 Refills [place] Carbonate ([place] Carbonate) 300 Mg Cap 600 MG PO HS, CAP 0 Refills Quetiapine (Seroquel) 25 Mg Tab 25 MG PO HS, #30 TAB 0 Refills Discharge Time <= 30 minutes Mental Status Examination Appearance: Appropriate Consciousness: Alert Orientation: x4 Motor Activity: Normal gait, Other (no abnormal motor movements noted) Speech: Unremarkable Language: Adequate Fund of Knowledge: Adequate Attention and Concentration: Adequate Memory: Unremarkable Mood: Appropriate, Good Affect: Appropriate, Euthymic Thought Process & Associations: Intact, Logical, Goal directed, Linear Thought Content: Appropriate Hallucination Type: None Delusion Type: None Suicidal Ideation: No Suicidal Plan: No Suicidal Intention: No Homicidal Ideation: No Homicidal Plan: No Homicidal Intention: No Insight: Fair Judgment: Adequate (fair at best) Discharge/Advance Care Plan Health Problems: (1) Cluster B personality disorder (2) Methamphetamine abuse Goals to promote your health * To prevent worsening of your condition and complications * To maintain your health at the optimal level Directions to meet your goals Take your medications as prescribed Follow your dietary instruction Follow activity as directed Keep your appointments as scheduled Take your immunizations and boosters as scheduled If your symptoms worsen call your PCP, if no PCP go to Urgent Care Center or Emergency Room For / questions related to your inpatient stay or results of tests pending at discharge, please contact Dr. Oziel Solano at Smoking is Dangerous to Your Health. Avoid second hand smoking Oziel Solano MD Jul 23, 2017 10:03
[2017-07-23] MEDS: hydrOXYzine HCL 50 MG TAB PO PRN (11:11)
== END 2017-07-23 13:40 | disposition short-term general hospital (02) | DRG 881 ==
LOC: NEPD 23:23 → NEDA 07-06 12:31 → H260 07-06 14:30 → H4EA 07-07 07:50 → H270 07-09 12:35 → H250 07-20 17:51 → H270 07-21 15:40
PROVIDERS: ADMIT Psychiatry & Neurology Psychiatry; ATTEND Psychiatry & Neurology Psychiatry
DX: F43.21 Adjustment disorder with depressed mood (principal); D70.9 Neutropenia, unspecified; R45.850 Homicidal ideations; R45.851 Suicidal ideations; F25.9 Schizoaffective disorder, unspecified; Z91.14 Patient's other noncompliance with medication regimen; Z91.5 Personal history of self-harm; F60.89 Other specific personality disorders; E55.9 Vitamin D deficiency, unspecified; F15.10 Other stimulant abuse, uncomplicated; F31.9 Bipolar disorder, unspecified; K59.09 Other constipation; R09.82 Postnasal drip; Z21 Asymptomatic human immunodeficiency virus [HIV] infection status; B19.20 Unspecified viral hepatitis C without hepatic coma; R00.0 Tachycardia, unspecified; R06.00 Dyspnea, unspecified; Z83.3 Family history of diabetes mellitus; Z82.49 Family history of ischemic heart disease and other diseases of the circulatory system; Z80.9 Family history of malignant neoplasm, unspecified; Z59.0 Homelessness; Z23 Encounter for immunization
CPT/HCPCS: 71010; 74020; 74177; 80048; 80053; 80061; 80074; 80076; 80307; 81001; 82306; 82607; 83036; 83690; 84443; 84484; 85025; 86355; 86357; 86359; 86360; 86480; 86592; 87491; 87535; 87591; 90732; 93005; Q9967